=== PATIENT | female | born 1975 | race Caucasian/White ===

== ENCOUNTER 2018-08-24 20:51 | Emergency (ER) | payer BC, OTHER ==
[2018-08-24] MEDS ORDERED: NA CHLORIDE 0.9% 1,000 ML ONE (22:09)
[2018-08-24] MEDS ORDERED: FAMOTIDINE 20 MG/2 ML VIAL IV ONE (22:09)
[2018-08-24 22:18] LABS: Absolute Lymphocytes (CBC) 1.2 K/uL (0.7-4.9); Absolute Monocytes 0.5 K/uL (0.1-1.3); Absolute Neutrophil 6.7 K/uL (1.8-8.0); Basophils % 0.6 % (0-1.3); Eosinophils % 0.7 % (0-4.4); Hematocrit 43.5 % (36.0-45.0); Lymphocytes % 14.2 % (15.3-44.8); MPV 8.6 fL (7.6-11.3); Monocytes % 5.5 % (3.3-12.3); RBC Red Blood Cell Count 4.26 M/uL (3.86-4.86)
[2018-08-24 22:23] LABS: Protime INR 0.92
[2018-08-24 22:36] LABS: ALT/SGPT 46 U/L (12-78); AST/SGOT 53 U/L (15-37); Albumin 3.8 g/dL (3.4-5.0); Alkaline Phosphatase 74 U/L (45-117); BUN Blood Urea Nitrogen 12 mg/dL (7-18); Bicarbonate 27 mmol/L (21-32); Bilirubin Direct 0.2 mg/dL (0-0.2); Bilirubin Total 0.7 mg/dL (0.2-1.0); Glucose Level 111 mg/dL (74-106); Lipase 170 U/L (73-393); Magnesium 2.2 mg/dL (1.8-2.4); NT PRO-BNP 25 pg/mL (<125); Potassium 3.5 mmol/L (3.5-5.1); Protein, Total 8.2 g/dL (6.4-8.2); Sodium Level 138 mmol/L (136-145); Troponin (Emerg Dept Use Only) < 0.02 ng/mL (0.0-0.045)
[2018-08-25 00:06] LABS: Urine Blood NEGATIVE (NEG); Urine Glucose NEGATIVE (NEG); Urine Protein NEGATIVE (NEG); Urine Specific Gravity 1.015 (1.005-1.030)
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
--- NOTE | 2018-08-25 06:46 | EKG ---
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
--- NOTE | 2018-08-25 08:00 | RAD REPORT ---
EXAM DESCRIPTION: RAD - Chest Single View - 08/24/2018 9:55 pm CLINICAL HISTORY: Chest pain;Abdominal distention Chest pain. COMPARISON: No comparisons FINDINGS: Portable technique limits examination quality. The lungs are grossly clear. The heart is normal in size. No displaced fractures. IMPRESSION: No acute intrathoracic process suspected.
--- NOTE | 2018-08-25 08:06 | RAD REPORT ---
EXAM DESCRIPTION: US - Abdomen Exam Limited - 08/24/2018 10:41 pm CLINICAL HISTORY: ABD PAIN COMPARISON: No comparisons FINDINGS: The gallbladder is contracted from recent meal and thus suboptimally assessed. No gallston e is seen. The common bile duct is normal measuring 3 mm. The liver demonstrates no findings of intrahepatic biliary dilatation. IMPRESSION: Contracted gallbladder.
--- NOTE | 2018-08-25 08:07 | RAD REPORT ---
EXAM DESCRIPTION: CT - Chest For Pe Angio - 08/25/2018 4:58 am CLINICAL HISTORY: Chest pain. CHEST PAIN COMPARISON: No comparisons TECHNIQUE: CT angiogram of the pulmonary arteries was performed with MIP. All CT scans are performed using dose optimization technique as appropriate and may include automated exposure control or mA/KV adjustment according to patient size. FINDINGS: No evidence of pulmonary thromboembolism. No acute aortic finding demonstrated. The lungs are clear. No significant pericardial or pleural fluid. No concerning bony finding. IMPRESSION: No evidence of pulmonary thromboembolism. No acute lung findings.
== END 2018-08-25 02:17 | disposition home or self-care (01) ==
LOC: ER 20:51
DX: I10 Essential (primary) hypertension (principal); S20.211A Contusion of right front wall of thorax, initial encounter; X58.XXXA Exposure to other specified factors, initial encounter; R10.821 Right upper quadrant rebound abdominal tenderness
CPT/HCPCS: 36415; 71045; 71275; 76705; 80048; 80076; 81003; 81025; 83690; 83735; 83880; 84484; 85025; 85610; 87086; 87088; 93005; 96361; 96374; 99285; J7030; Q9967

== ENCOUNTER 2020-12-16 13:58 | Emergency (ER) | payer BC ==
--- OUTSIDE RECORDS SUMMARY | 2020-12-16 14:02 | XMS REPORT | Continuity of Care Document ---
:1975 Author Organization [facility] t Address [facility] [address] [place] [id number] Care Team Providers Name Role Phone Unavailable Unavailable Unavailable Problems This patient has no known problems. Allergies, Adverse Reactions, Alerts This patient has no known allergies or adverse reactions. Medications This patient has no known medications. Procedures This patient has no known procedures. Results This patient has no known results.
--- NOTE | 2020-12-16 14:51 | RAD REPORT ---
EXAM DESCRIPTION: RAD - Chest Single View - 12/16/2020 2:44 pm CLINICAL HISTORY: generalized weakness, dizziness Chest pain. COMPARISON: Chest Single View dated 08/24/2018 FINDINGS: Portable technique limits examination quality. The lungs are grossly clear. The heart is normal in size. No displaced fractures. IMPRESSION: No acute intrathoracic process suspected.
[2020-12-16] MEDS ORDERED: MECLIZINE HCL 12.5 MG TAB ONE (14:58)
[2020-12-16] MEDS ORDERED: ONDANSETRON 4 MG/2 ML VIAL ONE (14:58)
[2020-12-16] MEDS ORDERED: NA CHLORIDE 0.9% 1,000 ML ONE (14:58)
--- NOTE | 2020-12-16 15:12 | RAD REPORT ---
EXAM DESCRIPTION: CT - Head Brain Wo Cont - 12/16/2020 3:07 pm CLINICAL HISTORY: DIZZINESS Headache, drowsiness COMPARISON: No comparisons TECHNIQUE: All CT scans are performed using dose optimization technique as appropriate and may inclu de automated exposure control or mA/KV adjustment according to patient size. FINDINGS: No intracranial hemorrhage, hydrocephalus or extra-axial fluid collection.No areas of brai n edema or evidence of midline shift. The paranasal sinuses and mastoids are clear. The calvarium is intact. IMPRESSION: No acute intracranial abnormality.
[2020-12-16 15:16] LABS: Absolute Lymphocytes (CBC) 0.7 K/uL (0.7-4.9); Basophils % 0.4 % (0-1.3); Hematocrit 43.2 % (36.0-45.0); MPV 8.4 fL (7.6-11.3); Protime INR 0.97
[2020-12-16 15:28] LABS: ALT/SGPT 80 U/L (12-78); AST/SGOT 88 U/L (15-37); Albumin 4.5 g/dL (3.4-5.0); Alkaline Phosphatase 92 U/L (45-117); BUN Blood Urea Nitrogen 5 mg/dL (7-18); Bicarbonate 31 mmol/L (21-32); Bilirubin Direct 0.3 mg/dL (0-0.2); Glucose Level 140 mg/dL (74-106); Magnesium 1.7 mg/dL (1.8-2.4); NT PRO-BNP 66 pg/mL (<125); Potassium 3.4 mmol/L (3.5-5.1); Protein, Total 8.4 g/dL (6.4-8.2); Sodium Level 138 mmol/L (136-145); Troponin (Emerg Dept Use Only) < 0.02 ng/mL (0.0-0.045)
[2020-12-16] MEDS ORDERED: PROMETHAZINE INJ 25 MG/ML AMP ONE (16:09)
[2020-12-16] MEDS ORDERED: DIAZEPAM 10 MG/2 ML INJ SYRINGE ONE (16:12)
--- NOTE | 2020-12-16 16:37 | EDPHYS ---
Physician Documentation [facility] Name: Autumn Bhatia Age: 45 yrs Sex: Female : 1975 Arrival Date: 12/16/2020 Time: 13:59 Bed 18 Private MD: ED Physician Jose De Jesus Souza HPI: 12/16 14:39 This 45 yrs old Female presents to ER via EMS with complaints of General pm1 Weakness. 14:39 The patient presents with sense of spinning, vertigo. Onset: The symptoms/episode pm1 began/occurred today. Context: occurred at home, just prior to the episode the patient experienced no apparent symptoms. Modifying factors: the symptoms are aggravated by movement of head, changing position, decreased PO intake for the past few days due to tooth pain and then from multiple upper teeth extraction. Associated signs and symptoms: Pertinent positives: nausea, vomiting, Pertinent negatives: diarrhea, abdominal pain, chest pain, shortness of breath. Severity of symptoms: in the emergency department the symptoms are worse. Patient's baseline: Neuro: alert and fully oriented, Motor: no deficits, Ambulation: walks without assistance, Speech: normal. The patient has not experienced similar symptoms in the past. The patient has been recently seen by a physician: with different complaint(s), multiple upper teeth extraction. 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 - Social history:: Smoking status: Patient denies any tobacco usage or history of. ROS: 14:39 Constitutional: Negative for fever, chills, and weight loss, Eyes: Negative for injury, pm1 pain, redness, and discharge. 14:39 Neck: Negative for injury, pain, and swelling, Cardiovascular: Negative for chest pain, palpitations, and edema, Respiratory: Negative for shortness of breath, cough, wheezing, and pleuritic chest pain. 14:39 Back: Negative for injury and pain, : Negative for injury, bleeding, discharge, and swelling, MS/Extremity: Negative for injury and deformity, Skin: Negative for injury, rash, and discoloration. 14:39 ENT: Positive for dental pain, post teeth extraction, Negative for sore throat, difficulty swallowing, difficulty handling secretions, hoarseness. 14:39 Abdomen/GI: Positive for nausea, vomiting, Negative for abdominal pain, diarrhea, constipation. 14:39 Neuro: Positive for dizziness, Negative for dizziness, numbness, tingling. Exam: 14:39 Constitutional: This is a well developed, well nourished patient who is awake, alert, pm1 and in no acute distress. Head/Face: Normocephalic, atraumatic. 14:39 ENT: Nares patent. No nasal discharge, no septal abnormalities noted. Tympanic membranes are normal and external auditory canals are clear. Oropharynx with no redness, swelling, or masses, exudates, or evidence of obstruction, uvula midline. Mucous membranes moist. 14:39 Skin: Warm, dry with normal turgor. Normal color with no rashes, no lesions, and no evidence of cellulitis. MS/ Extremity: Pulses equal, no cyanosis. Neurovascular intact. Full, normal range of motion. 14:39 Eyes: Periorbital structures: appear normal, Pupils: equal, round, and reactive to light and accomodation, Extraocular movements: intact throughout, Conjunctiva: no acute changes, Nystagmus: horizontal nystagmus present looking to the left side. 14:39 Cardiovascular: Rate: normal, Rhythm: regular, Pulses: no pulse deficits are appreciated, Heart sounds: normal, normal S1and S2. 14:39 Respiratory: Exam negative for acute changes, respiratory distress, shortness of breath, Breath sounds: are clear throughout. 14:39 Abdomen/GI: Inspection: abdomen appears normal, Palpation: abdomen is soft and non-tender, in all quadrants. 14:39 Neuro: Exam negative for acute changes, Orientation: is normal, Mentation: is normal, Cranial nerves: CN II- XII are normal as tested, Motor: moves all fours, strength is normal, Sensation: is normal, no obvious gross deficits. Vital Signs: 14:00 BP 145 / 85; Pulse 82; Resp 16; Temp 98; Pulse Ox 99% ; bp 14:12 BP 146 / 87; Pulse 87; Resp 16; Pulse Ox 97% ; bp 15:30 BP 147 / 97; Pulse 80; Resp 16; Pulse Ox 99% ; bp MDM: 14:09 Patient medically screened. angelina 16:34 ED course: symptoms resolved ed with Valium and phenergan. Will discharge the patient pm[facility] Valium and phenergan. 16:34 Data reviewed: vital signs. Data interpreted: Pulse oximetry: on room air is 99 %. pm1 Interpretation: normal. 16:34 Counseling: I had a detailed discussion with the patient and/or guardian regarding: the pm1 historical points, exam findings, and any diagnostic results supporting the discharge/admit diagnosis, lab results, radiology results, the need for outpatient follow up, a family practitioner, to return to the emergency department if symptoms worsen or persist or if there are any questions or concerns that arise at home. 12/16 14:29 Order name: Basic Metabolic Panel; Complete Time: 15:40 pm1 12/16 14:29 Order name: CBC with Diff pm1 12/16 14:29 Order name: LFT's; Complete Time: 15:40 pm1 12/16 14:29 Order name: Magnesium; Complete Time: 15:40 pm1 12/16 14:29 Order name: NT PRO-BNP; Complete Time: 15:40 pm1 12/16 14:29 Order name: PT-INR; Complete Time: 15:40 pm1 12/16 14:29 Order name: CT Head Brain wo Cont; Complete Time: 15:17 pm1 12/16 14:29 Order name: Troponin (emerg Dept Use Only); Complete Time: 15:40 pm1 12/16 14:29 Order name: XRAY Chest (1 view); Complete Time: 14:56 pm1 12/16 14:29 Order name: EKG; Complete Time: 14:29 pm1 12/16 14:29 Order name: Cardiac monitoring; Complete Time: 14:57 pm12/16 14:29 Order name: EKG - Nurse/Tech; Complete Time: 14:55 pm1 12/16 14:29 Order name: IV Saline Lock; Complete Time: 14:56 pm1 12/16 14:29 Order name: Labs collected and sent; Complete Time: 14:56 pm1 12/16 14:29 Order name: O2 Per Protocol; Complete Time: 14:56 pm12/16 14:29 Order name: O2 Sat Monitoring; Complete Time: 14:56 pm1 Administered Medications: 14:50 Drug: Zofran (Ondansetron) 4 mg Route: IVP; Site: right antecubital; bp 15:35 Follow up: Response: No adverse reaction bp 14:50 Drug: Meclizine 50 mg Route: PO; bp 15:35 Follow up: Response: No adverse reaction bp 15:59 Drug: Phenergan (promethazine) 12.5 mg Route: IVP; Site: right antecubital; bp 16:55 Follow up: Response: No adverse reaction; Marked relief of symptoms bp 15:59 Drug: Valium (diazepam) 5 mg Route: IVP; Site: right antecubital; bp 16:55 Follow up: Response: No adverse reaction; Marked relief of symptoms bp Disposition: 12/16/20 16:37 Discharged to Home. Impression: Benign paroxysmal vertigo. - Condition is Stable. - Discharge Instructions: Benign Positional Vertigo. - Prescriptions for Meclizine 25 mg Oral Tablet - take 1 tablet by ORAL route every 8 hours As needed; 30 tablet. Valium 2 mg Oral Tablet - take 1 tablet by ORAL route every 8 hours As needed; 20 tablet. promethazine 25 mg Oral Tablet - take 1 tablet by ORAL route every 6 hours As needed; 20 tablet. - Medication Reconciliation Form, Thank You Letter, Antibiotic Education, Prescription Opioid Use, Work release form form. - Follow up: Emergency Department; When: As needed; Reason: Worsening of condition. Follow up: Private Physician; When: 2 - 3 days; Reason: Recheck today's complaints, Continuance of care, Re-evaluation by your physician. - Problem is new. - Symptoms have improved. Addendum: 12/18/2020 09:43 Co-signature as Attending Physician, Jose De Jesus Souza MD I agree with the assessment and c montelongo plan of care. Signatures: Dispatcher [employer] EDWV Jose De Jesus Souza MD MD cha Marinas, Patrick, NP CORPORATE GENERAL MANAGER pm1 Albert Wahl, RN RN bp Corrections: (The following items were deleted from the chart) 12/16 16:36 16:34 ED course: improved with valium and phenergan. Will discharge the patient home pm1 with meclizine, valium and phenergan. pm1 17:38 16:37 12/16/2020 16:37 Discharged to Home. Impression: Benign paroxysmal vertigo. bp Condition is Stable. Forms are Medication Reconciliation Form, Thank You Letter, Antibiotic Education, Prescription Opioid Use. Follow up: Emergency Department; When: As needed; Reason: Worsening of condition. Follow up: Private Physician; When: 2 - 3 days; Reason: Recheck today's complaints, Continuance of care, Re-evaluation by your physician. Problem is new. Symptoms have improved. pm1
--- NOTE | 2020-12-16 16:37 | ER ---
Nurse's Notes [facility] Name: Autumn Bhatia Age: 45 yrs Sex: Female : 1975 Arrival Date: 12/16/2020 Time: 13:59 Bed 18 Private MD: Diagnosis: Benign paroxysmal vertigo Presentation: 12/16 14:00 Chief complaint: EMS states: GENERALIZED WEAKNESS AND DIZZINESS. Coronavirus screen: At bp this time, the client does not indicate any symptoms associated with coronavirus-19. Ebola Screen: No symptoms or risks identified at this time. Initial Sepsis Screen: Does the patient meet any 2 criteria? No. Patient's initial sepsis screen is negative. Does the patient have a suspected source of infection? No. Patient's initial sepsis screen is negative. Risk Assessment: Do you want to hurt yourself or someone else? Patient reports no desire to harm self or others. Onset of symptoms was December 16, 2020. Care prior to arrival: Glucose check: 120. 14:00 Method Of Arrival: [facility] bp 14:00 Acuity: SAY 3 bp Triage Assessment: 14:01 General: Appears in no apparent distress. uncomfortable, slender, Behavior is bp cooperative, appropriate for age, anxious. Pain: Denies pain. EENT: No deficits noted. Neuro: Reports dizziness, weakness. Cardiovascular: No deficits noted. Rhythm is sinus rhythm. Respiratory: No deficits noted. GI: Bowel sounds present X 4 quads. : No signs and/or symptoms were reported regarding the genitourinary system. Derm: No deficits noted. Musculoskeletal: No deficits noted. 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 - Social history:: Smoking status: Patient denies any tobacco usage or history of. Screenin:04 Abuse screen: Denies threats or abuse. Denies injuries from another. Nutritional bp screening: No deficits noted. Tuberculosis screening: No symptoms or risk factors identified. Fall Risk None identified. Assessment: 14:04 General: SEE TRIAGE NOTE. bp 15:34 Reassessment: No changes from previously documented assessment. Patient and/or family bp updated on plan of care and expected duration. Pain level reassessed. PT RETURNED FROM CT Patient states symptoms have not improved. Vital Signs: 14:00 BP 145 / 85; Pulse 82; Resp 16; Temp 98; Pulse Ox 99% ; bp 14:12 BP 146 / 87; Pulse 87; Resp 16; Pulse Ox 97% ; bp 15:30 BP 147 / 97; Pulse 80; Resp 16; Pulse Ox 99% ; bp ED Course: 13:59 Patient arrived in ED. cl3 13:59 Albert Wahl, RN is Primary Nurse. bp 14:01 Triage completed. bp 14:01 Arm band placed on. bp 14:04 Patient has correct armband on for positive identification. Bed in low position. Call bp light in reach. Side rails up X2. 14:06 Dat Martínez NP is PHCP. pm1 14:06 Jose De Jesus Souza MD is Attending Physician. pm1 14:44 XRAY Chest (1 view) In Process Unspecified. EDMS 14:50 Inserted saline lock: 20 gauge in right antecubital area, using aseptic technique. bp Blood collected. 14:57 CT Head Brain wo Cont Sent. bp 15:06 CT Head Brain wo Cont In Process Unspecified. EDMS Administered Medications: 14:50 Drug: Zofran (Ondansetron) 4 mg Route: IVP; Site: right antecubital; bp 15:35 Follow up: Response: No adverse reaction bp 14:50 Drug: Meclizine 50 mg Route: PO; bp 15:35 Follow up: Response: No adverse reaction bp 15:59 Drug: Phenergan (promethazine) 12.5 mg Route: IVP; Site: right antecubital; bp 16:55 Follow up: Response: No adverse reaction; Marked relief of symptoms bp 15:59 Drug: Valium (diazepam) 5 mg Route: IVP; Site: right antecubital; bp 16:55 Follow up: Response: No adverse reaction; Marked relief of symptoms bp Outcome: 16:37 Discharge ordered by . pm1 17:38 Patient left the ED. bp Signatures: Dispatcher [employer] EDMS Dat Martínez NP SUPERVISOR MONEY ROOM pm1 Albert Wahl, RN Travis Loera cl3
[2020-12-16 17:47] VITALS: TEMP 98
[2020-12-16 17:50] VITALS: BP 147/97; O2SAT 99
[2020-12-16 19:10] LABS: Platelet Estimate ADEQ; White Blood Cell Scan OK (OK)
[2020-12-16 19:11] LABS: Blood Morphology Comment NOTED (NOT SEEN); Macrocytosis 2+
--- NOTE | 2020-12-17 12:13 | EKG ---
Test Date: 2020-12-16 Test Time: 14:52:07 Time Stamp Assembler: SVEN MEASUREMENT RESULTS: Intervals: Rate: 73 PA: 134 QRSD: 72 QT: 426 QTc: 469 [place]: P: 63 PA: 134 QRS: 68 T: 40 INTERPRETIVE STATEMENTS: Normal sinus rhythm ST abnormality, possible digitalis effect Abnormal ECG Compared to ECG 08/24/2018 22:20:41 ST (T wave) deviation now present Electronically Signed On 12-17-20 12:11:56 CDT by Amador Snyder
== END 2020-12-16 17:38 | disposition home or self-care (01) ==
LOC: ER 13:58
DX: H81.10 Benign paroxysmal vertigo, unspecified ear (principal)
CPT/HCPCS: 93005; 85025; 80048; 36415; 83735; 85610; 80076; 84484; 83880; 70450; 71045; J2550; J3360; J7030; J2405; 96374; 96375; 99284

== ENCOUNTER 2021-11-24 09:46 | Emergency (ER) | payer BC ==
--- OUTSIDE RECORDS SUMMARY | 2021-11-24 09:48 | XMS REPORT | Continuity of Care Document ---
:1975 Author Organization [facility] t Address [address] [place] [address] Care Team Providers Name Role Phone Pcp, Does Not Have A Primary Care Physician Kishore WADE, T Attending Clinician Unavailable Emeli WADE Attending Clinician Unavailable Only, Db Test Attending Clinician Unavailable Romero DANGELO Attending Clinician Pcp, Does Not Have A Attending Clinician HOPE Attending Clinician Unavailable [place] Admitting Clinician Unavailable Payers Payer Name Policy Type Policy Number Effective Date Expiration Date S suzanna [id number] 1959 00:00:00 Problems This patient has no known problems. Allergies, Adverse Reactions, Alerts Allergy Allergy Status Severity Reaction(s) Onset Inactive Treating Comm ents Source Name Type Date Date Clinician Sulfa(Ahumada DA Active Unknown [facility] (LUF/LI V/SA) NO KNOWN Drug Active [facility] ALLERGIE Class [facility] Social History Social Habit Start Date Stop Date Quantity Comments Source Exposure to Not sure [facility] SARS-CoV-2 (event) Medica l Branch Sex Assigned [birth year] [facility] 00:00:00 00:00:00 [facility] Smoking Status Start Date Stop Date Source Unknown if ever smoked [facility] Medications Ordered Filled Start Stop Current Ordering Indication Dosage Frequency Signature Comments Components Source Medication Medication Date Date Medication? Clinician (SIG) Name Name No known No [facility] medications [facility] No known No [facility] medications [facility] No known No [facility] medications [facility] No known No Univers medications ity [facility] No known No Univers medications ity [facility] No known No Univers medications ity [facility] No known No [facility] medications [facility] Vital Signs Vital Name Observation Time Observation Value Comments Source Height 2013-07-04 02:27:00 167.64 CM Weight 2013-07-04 02:27:00 61.23 KG Procedures This patient has no known procedures. Encounters Start End Encounter Admission Attending Care Care Encounter Source Date/Time Date/Time Type Type Clinicians Facility Department ID 2021-04-19 2021-04-19 Letter JOCY Novak [id number] [facility] 00:00:00 00:00:00 (Out) Ct [facility] [id number] it y of [facility] [id number] Shadi as [id number] [address] 2021-04-19 2021-04-19 Letter JOCY Novak [id number] Univers 00:00:00 00:00:00 (Out) Ct [facility] [id number] it y of [facility] [id number] Shadi as [id number] [address] 2021-04-19 2021-04-19 Telephone Opal Sainz [id number] Univers 00:00:00 00:00:00 AMPARO [id number] it y of [facility] [id number] Shadi as [id number] [address] 2021-04-18 2021-04-18 Laboratory Only, Ang Db Test [facility] 1.2.8 [id number] Univers 11:26:02 11:41:02 Only Danyell Jasso [facility] [id number] ity [facility] [id number] Shadi as Manfred?Blea [id number] [address] Medical Office Building 2021-04-18 2021-04-18 Outpatient [facility] [id number] Univers 11:20:00 11:20:[id number] [facility] 2021-04-18 2021-04-18 Outpatient R [facility] [id number] Univers 11:20:00 11:20:[address] [facility] 2021-04-03 2021-04-03 Letter KishoreJOCY francois [id number] Univers 00:00:00 00:00:00 (Out) Ct [facility] [id number] it y of [facility] [id number] Shadi as [id number] [address] 2021-04-03 2021-04-03 Telephone PcpJOCY [id number] Univers 00:00:00 00:00:00 Patient AMPARO [id number] it y of [facility] [id number] [id number] [address] 2021-04-02 2021-04-02 Outpatient R [facility] [id number] Univers 15:10:00 15:10:[id number] [facility] 2021-04-02 2021-04-02 Outpatient R [facility] [id number] Univers 15:10:00 15:10:00 [facility] 2013-07-04 2013-07-04 Emergency 1 AROLDO HOPE EMD [id number] 02:10:00 03:26:00 SHANNON winkler (HILDA/VESNA Segovia/) Results This patient has no known results.
[2021-11-24 10:39] LABS: Urine Blood Negative (Negative); Urine Glucose Negative (Negative); Urine Protein Negative (Negative); Urine Specific Gravity 1.025 (1.005-1.030); Urine pH 5.5 (5.0-7.0)
[2021-11-24 10:58] LABS: Barbiturates NEGATIVE (NEGATIVE); Benzodiazepines NEGATIVE (NEGATIVE); Cocaine NEGATIVE (NEGATIVE); METHAMPHETAM NEGATIVE (NEGATIVE); Methadone NEGATIVE (NEGATIVE); Opiates NEGATIVE (NEGATIVE); Phencyclidine NEGATIVE (NEGATIVE); THC Cannibis NEGATIVE (NEGATIVE)
[2021-11-24 11:07] LABS: Urine Specific Gravity/Preg 1.025 (1.005-1.030)
--- NOTE | 2021-11-24 11:30 | RAD REPORT ---
EXAM DESCRIPTION: CT - C Spine Wo Con - 11/24/2021 11:23 am CLINICAL HISTORY: trauma COMPARISON: <Comparisons> TECHNIQUE: CT Scan was obtained of the cervical spine without contrast. Reformats were provided in t he sagittal and coronal plane. FINDINGS: No acute fracture of the cervical spine. Reversal of the normal cervical lordosis. Mild ce rvical spondylosis with uncovertebral joint hypertrophy at the C5-6 level. No prevertebral edema. No significant focal degenerative changes. No suspicious thyroid nodules or lymphadenopathy. The lung ap ices are clear. IMPRESSION: No acute fracture of the cervical spine .
--- NOTE | 2021-11-24 11:31 | RAD REPORT ---
EXAM DESCRIPTION: CT - Head Brain Wo Cont - 11/24/2021 11:23 am CLINICAL HISTORY: trauma COMPARISON: Head Brain Wo Cont dated 12/16/2020 TECHNIQUE: All CT scans are performed using dose optimization technique as appropriate and may inclu de automated exposure control or mA/KV adjustment according to patient size. FINDINGS: No intracranial hemorrhage, hydrocephalus or extra-axial fluid collection.No areas of brai n edema or evidence of midline shift. Left parietal scalp hematoma. The paranasal sinuses and mastoids are clear. The calvarium is intact. IMPRESSION: No acute intracranial abnormality.
[2021-11-24] MEDS ORDERED: NA CHLORIDE 0.9% 1,000 ML ONE (11:53)
--- NOTE | 2021-11-24 11:57 | RAD REPORT ---
EXAM DESCRIPTION: RAD - Sacrum And Coccyx - 11/24/2021 11:33 am CLINICAL HISTORY: PAIN COMPARISON: <Comparisons> FINDINGS/IMPRESSION: Suspected nondisplaced fracture of S4. No other fractures are identified.
--- NOTE | 2021-11-24 11:58 | RAD REPORT ---
EXAM DESCRIPTION: RAD - Lumbar Spine 3 Views - 11/24/2021 11:33 am CLINICAL HISTORY: PAIN COMPARISON: Lumbar Spine 3 Views dated 11/24/2021No comparisons FINDINGS: No acute fracture. No malalignment. No significant focal degenerative changes. IMPRESSION: No acute osseous abnormality involving the lumbar spine. Suspected nondisplaced S4 fract ure.
[2021-11-24] MEDS ORDERED: ACETAMINOPHEN 325 MG TABLET ONE (12:19)
[2021-11-24] MEDS ORDERED: THIAMINE HCL 100 MG TABLET ONE (12:20)
[2021-11-24 12:39] LABS: Absolute Lymphocytes (CBC) 1.1 K/uL (0.7-4.9); Hematocrit 45.9 % (36.0-45.0); Lymphocytes % 18.1 % (15.3-44.8); MPV 7.5 fL (7.6-11.3); RBC Red Blood Cell Count 4.37 M/uL (3.86-4.86)
[2021-11-24 12:50] LABS: Protime INR 0.99
[2021-11-24 13:06] LABS: ALT/SGPT 27 U/L (12-78); AST/SGOT 51 U/L (15-37); Albumin 3.8 g/dL (3.4-5.0); Alkaline Phosphatase 87 U/L (45-117); BUN Blood Urea Nitrogen 7 mg/dL (7-18); Bicarbonate 24 mmol/L (21-32); Bilirubin Direct 0.2 mg/dL (0-0.2); Bilirubin Total 0.3 mg/dL (0.2-1.0); Glucose Level 84 mg/dL (74-106); Potassium 3.7 mmol/L (3.5-5.1); Sodium Level 141 mmol/L (136-145)
--- NOTE | 2021-11-24 13:09 | ER ---
Nurse's Notes [facility] Name: Autumn Bhatia Age: 46 yrs Sex: Female : 1975 Arrival Date: 11/24/2021 Time: 09:49 Bed 13 Private MD: Diagnosis: Fall on same level, unspecified;Unspecified injury of head, initial encounter-left scalp contusion, hematoma;Alcohol abuse;Low back pain;Fracture of sacrum-non displaced S4 fracture Presentation: 11/24 09:54 Chief complaint: EMS states: ETOH ABUSE AND RECENT FALLS WITH SACRAL PAIN AND LEFT bp TEMPORAL HEMATOMA. Coronavirus screen: At this time, the client does not indicate any symptoms associated with coronavirus-19. Ebola Screen: No symptoms or risks identified at this time. Initial Sepsis Screen: Does the patient meet any 2 criteria? HR > 90 bpm. No. Patient's initial sepsis screen is negative. Does the patient have a suspected source of infection? No. Patient's initial sepsis screen is negative. Risk Assessment: Do you want to hurt yourself or someone else? Patient reports no desire to harm self or others. Onset of symptoms is unknown. Care prior to arrival: Glucose check: 92. 09:54 Method Of Arrival: EMS: [facility] bp 09:54 Acuity: SAY 2 bp Triage Assessment: 09:56 General: Appears in no apparent distress. comfortable, Behavior is cooperative, bp appropriate for age, anxious. Pain: Complains of pain in left temporal area and buttocks. EENT: No deficits noted. Neuro: Level of Consciousness is awake, alert, obeys commands, Oriented to Appropriate for age. Cardiovascular: Rhythm is sinus tachycardia. Respiratory: No deficits noted. GI: No signs and/or symptoms were reported involving the gastrointestinal system. : No signs and/or symptoms were reported regarding the genitourinary system. Derm: No deficits noted. Musculoskeletal: No deficits noted. Injury Description: Bruise sustained to left temporal area. Historical: - Allergies: :56 No Known Allergies; bp - Home Meds: :56 None [Active]; bp - PMHx: 09:56 ovarian vein thrombosis; Depressive disorder; bp - Immunization history:: Adult Immunizations up to date. - Social history:: Smoking status: Patient denies any tobacco usage or history of. - Family history:: not pertinent. Screenin:50 Abuse screen: Denies threats or abuse. Denies injuries from another. Nutritional bp screening: No deficits noted. Tuberculosis screening: No symptoms or risk factors identified. Fall Risk None identified. Assessment: 09:50 General: SEE TRIAGE NOTE. bp 12:00 Reassessment: FAMILY AT B/S. PIV AND LABS OBTAINED. LAB RESULTS PENDING FOR DISPO. bp 13:20 Reassessment: PT D/C HOME AMBULATORY WITH FAMILY, DX WITH ALCOHOL ABUSE. bp Vital Signs: 09:49 BP 130 / 96; Pulse 105; Resp 18; Temp 97.9(O); Pulse Ox 100% on R/A; Weight 58.97 kg mb7 (R); Height 5 ft. 6 in. (167.64 cm) (R); 12:30 BP 124 / 94; Pulse 100; Resp 16; Pulse Ox 99% ; bp 09:49 Body Mass Index 20.98 (58.97 kg, 167.64 cm) mb7 ED Course: 09:49 Patient arrived in ED. em1 09:50 Jose De Jesus Souza MD is Attending Physician. angelina 09:50 Patient has correct armband on for positive identification. Bed in low position. Call mb7 light in reach. Side rails up X 1. Door closed. Noise minimized. 09:53 Albert Wahl, RN is Primary Nurse. bp 09:56 Triage completed. bp 10:19 EKG done, by ED staff, reviewed by Jose De Jesus Souza MD. mb7 11:25 C Spine Wo Con In Process Unspecified. EDMS 11:25 Head Brain Wo Cont In Process Unspecified. EDMS 11:35 Lumbar Spine (3 Views) XRAY In Process Unspecified. EDMS 11:35 Sacrum And Coccyx XRAY In Process Unspecified. EDMS 12:23 Initial lab(s) drawn, by tx, sent to lab. Inserted saline lock: 24 gauge in left wrist, jl7 using aseptic technique. Blood collected. 13:08 Lorenzo Burgos MD is Referral Physician. angelina 13:20 No provider procedures requiring assistance completed. IV discontinued, intact, bp bleeding controlled, No redness/swelling at site. Pressure dressing applied. Administered Medications: 12:28 Drug: NS 0.9% 1000 ml Route: IV; Rate: 1 bolus; Site: right wrist; bp 13:22 Follow up: IV Status: Completed infusion; IV Intake: 1000ml bp 12:28 Drug: Thiamine 100 mg Route: IV; Rate: bolus; Site: right wrist; bp 13:22 Follow up: IV Status: Completed infusion; IV Intake: 100ml bp 12:28 Drug: Tylenol 650 mg Route: PO; bp 13:22 Follow up: Response: No adverse reaction; Pain is decreased bp Intake: 13:22 IV: 100ml; Total: 100ml. bp 13:22 IV: 1000ml; Total: 1100ml. bp Outcome: 13:08 Discharge ordered by . angelina 13:20 Discharged to home ambulatory, with family. bp 13:20 Condition: stable 13:20 Discharge instructions given to patient, Instructed on discharge instructions, follow up and referral plans. medication usage, Demonstrated understanding of instructions, follow-up care, medications, Prescriptions given X 1. 13:22 Patient left the ED. bp Signatures: Dispatcher [employer] EDMS Jose De Jesus Souza MD MD cha Martinez, Eric em1 Rica Ortiz RN RN jl7 Albert Wahl RN RN Veronique Hernandez mb7 Corrections: (The following items were deleted from the chart) 10:31 09:54 Risk Assessment: Do you want to hurt yourself or someone else? Patient reports bp desire/thoughts of hurting themselves or someone else. Provider notified. bp
--- NOTE | 2021-11-24 13:10 | EDPHYS ---
Physician Documentation [facility] Name: Autumn Bhatia Age: 46 yrs Sex: Female : 1975 Arrival Date: 11/24/2021 Time: 09:49 Bed 13 Private MD: ED Physician Jose De Jesus Souza HPI: 11/24 10:54 This 46 yrs old Female presents to ER via EMS with complaints of ETOH ABUSE, angelina Fall Injury. 10:54 Details of fall: The patient fell from an upright position, while walking. Onset: The angelina symptoms/episode began/occurred 1 week(s) ago. Associated injuries: The patient sustained injury to the head, hematoma, decreased range of motion, hematoma. Severity of symptoms: At their worst the symptoms were mild, in the emergency department the symptoms are unchanged. The patient has not experienced similar symptoms in the past. 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 - Social history:: Smoking status: Patient denies any tobacco usage or history of. - Family history:: not pertinent. ROS: 10:54 Constitutional: Negative for fever, chills, and weight loss, Eyes: Negative for injury, angleina pain, redness, and discharge, ENT: Negative for injury, pain, and discharge, Neck: Negative for injury, pain, and swelling, Cardiovascular: Negative for chest pain, palpitations, and edema, Respiratory: Negative for shortness of breath, cough, wheezing, and pleuritic chest pain, Abdomen/GI: Negative for abdominal pain, nausea, vomiting, diarrhea, and constipation, : Negative for injury, bleeding, discharge, and swelling, MS/Extremity: Negative for injury and deformity, Skin: Negative for injury, rash, and discoloration, Psych: Negative for depression, anxiety, suicide ideation, homicidal ideation, and hallucinations, Allergy/Immunology: Negative for hives, rash, and allergies, Endocrine: Negative for neck swelling, polydipsia, polyuria, polyphagia, and marked weight changes, Hematologic/Lymphatic: Negative for swollen nodes, abnormal bleeding, and unusual bruising. 10:54 Back: Positive for decreased range of motion, of the sacrum. 10:54 Neuro: Positive for headache. Exam: 10:54 Constitutional: This is a well developed, well nourished patient who is awake, alert, angelina and in no acute distress. Eyes: Pupils equal round and reactive to light, extra-ocular motions intact. Lids and lashes normal. Conjunctiva and sclera are non-icteric and not injected. Cornea within normal limits. Periorbital areas with no swelling, redness, or edema. ENT: Nares patent. No nasal discharge, no septal abnormalities noted. Tympanic membranes are normal and external auditory canals are clear. Oropharynx with no redness, swelling, or masses, exudates, or evidence of obstruction, uvula midline. Mucous membranes moist. Neck: Trachea midline, no thyromegaly or masses palpated, and no cervical lymphadenopathy. Supple, full range of motion without nuchal rigidity, or vertebral point tenderness. No Meningismus. Chest/axilla: Normal chest wall appearance and motion. Nontender with no deformity. No lesions are appreciated. Cardiovascular: Regular rate and rhythm with a normal S1 and S2. No gallops, murmurs, or rubs. Normal PMI, no JVD. No pulse deficits. Respiratory: Lungs have equal breath sounds bilaterally, clear to auscultation and percussion. No rales, rhonchi or wheezes noted. No increased work of breathing, no retractions or nasal flaring. Abdomen/GI: Soft, non-tender, with normal bowel sounds. No distension or tympany. No guarding or rebound. No evidence of tenderness throughout. Back: No spinal tenderness. No costovertebral tenderness. Full range of motion. Female : Normal external genitalia. Skin: Warm, dry with normal turgor. Normal color with no rashes, no lesions, and no evidence of cellulitis. MS/ Extremity: Pulses equal, no cyanosis. Neurovascular intact. Full, normal range of motion. Neuro: Awake and alert, GCS 15, oriented to person, place, time, and situation. Cranial nerves II-XII grossly intact. Motor strength 5/5 in all extremities. Sensory grossly intact. Cerebellar exam normal. Normal gait. Psych: Awake, alert, with orientation to person, place and time. Behavior, mood, and affect are within normal limits. 10:54 Head/face: Noted is contusion, hematoma, that is mild, of the left frontal area and left temporal area. 10:54 Back: pain, that is mild, of the lumbar area and sacrum. Vital Signs: 09:49 BP 130 / 96; Pulse 105; Resp 18; Temp 97.9(O); Pulse Ox 100% on R/A; Weight 58.97 kg mb7 (R); Height 5 ft. 6 in. (167.64 cm) (R); 12:30 BP 124 / 94; Pulse 100; Resp 16; Pulse Ox 99% ; bp 09:49 Body Mass Index 20.98 (58.97 kg, 167.64 cm) mb7 MDM: 09:50 Patient medically screened. angelina 10:59 Differential diagnosis: abrasion, closed head injury, laceration, multiple trauma, angelina sprain, strain. Data reviewed: vital signs, nurses notes, lab test result(s), EKG, radiologic studies, CT scan, plain films. Data interpreted: radiation monitor: rate is 105 beats/min, rhythm is regular, Pulse oximetry: on room air is 100 %. Test interpretation: by ED physician or midlevel provider: ECG, plain radiologic studies. Counseling: I had a detailed discussion with the patient and/or guardian regarding: the historical points, exam findings, and any diagnostic results supporting the discharge/admit diagnosis, lab results, radiology results, the need for outpatient follow up, for definitive care, a family practitioner, a psychiatrist. 11/24 09:52 Order name: Acetaminophen; Complete Time: 13:08 [facility] 11/24 09:52 Order name: Basic Metabolic Panel; Complete Time: 13:08 angelina 11/24 09:52 Order name: CBC with Diff; Complete Time: 13:08 11/24 09:52 Order name: ETOH Level 11/24 09:52 Order name: Hepatic Function; Complete Time: 13:08 11/24 09:52 Order name: PT-INR; Complete Time: 13:08 angelina 11/24 09:52 Order name: Ptt, Activated; Complete Time: 13:08 11/24 09:52 Order name: Salicylate; Complete Time: 13:08 angelina 11/24 09:52 Order name: Urine Drug Screen; Complete Time: 11:33 angelina 11/24 10:39 Order name: Urine Dipstick-Ancillary; Complete Time: 10:50 EDMS 11/24 10:39 Order name: Urine --Ancillary (enter results); Complete Time: 11:33 em1 11/24 10:47 Order name: Lumbar Spine (3 Views) XRAY; Complete Time: 12:12 [facility] 11/24 10:47 Order name: Sacrum And Coccyx XRAY; Complete Time: 12:12 [facility] 11/24 09:52 Order name: EKG; Complete Time: 09:53 [facility] 11/24 09:52 Order name: EKG - Nurse/Tech; Complete Time: 10:19 [facility] 11/24 09:52 Order name: IV Saline Lock; Complete Time: 11:08 [facility] 11/24 09:52 Order name: Labs collected and sent; Complete Time: 12:28 [facility] 11/24 09:52 Order name: Suicide Precautions; Complete Time: 11:58 [facility] 11/24 09:52 Order name: Suicide Screening ([place]); Complete Time: 11:58 [facility] 11/24 09:52 Order name: Urine Dipstick-Ancillary (obtain specimen); Complete Time: 10:39 [facility] 11/24 09:52 Order name: Urine Test (obtain specimen); Complete Time: 10:39 [facility] 11/24 10:54 Order name: Head Brain Wo Cont; Complete Time: 11:33 EDMS 11/24 11:01 Order name: Ice pack; Complete Time: 11:58 [facility] 11/24 11:24 Order name: C Spine Wo Con; Complete Time: 11:33 EDMS Administered Medications: 12:28 Drug: NS 0.9% 1000 ml Route: IV; Rate: 1 bolus; Site: right wrist; bp 13:22 Follow up: IV Status: Completed infusion; IV Intake: 1000ml bp 12:28 Drug: Thiamine 100 mg Route: IV; Rate: bolus; Site: right wrist; bp 13:22 Follow up: IV Status: Completed infusion; IV Intake: 100ml bp 12:28 Drug: Tylenol 650 mg Route: PO; bp 13:22 Follow up: Response: No adverse reaction; Pain is decreased bp Disposition Summary: 11/24/21 13:08 Discharge Ordered Location: Home angelina Problem: new angelina Symptoms: have improved angelina Condition: Stable angelina Diagnosis - Fall on same level, unspecified angelina - Unspecified injury of head, initial encounter - left scalp contusion, hematoma angelina - Alcohol abuse angelina - Low back pain angelina - Fracture of sacrum - non displaced S4 fracture angelina Followup: angelina - With: Private Physician - When: 2 - 3 days - Reason: Recheck today's complaints, Continuance of care, Re-evaluation by your physician Followup: angelina - With: - When: 2 - 3 days - Reason: Recheck today's complaints, Re-evaluation by your physician Discharge Instructions: - Discharge Summary Sheet angelina - Alcohol Intoxication angelina - Acute Back Pain, Adult angelina - Alcohol Use Disorder angelina - Head Injury, Adult angelina - Musculoskeletal Pain angelina - Alcohol Intoxication, [id number] angelina - Alcohol Abuse and Nutrition angelina - Back Injury Prevention [facility] Forms: - Medication Reconciliation Form [facility] - Thank You Letter angelina - Antibiotic Education angelina - Prescription Opioid Use [facility] Prescriptions: - Tylenol 325 mg Oral Tablet - take 2 tablets by ORAL route every 6 hours as needed; 1 bottle; Refills: 0, angelina Product Selection Permitted Signatures: Dispatcher [employer] EDMS Jose De Jesus Souza MD MD cha Peltier, Brian, RN RN bp Corrections: (The following items were deleted from the chart) 10:54 10:47 Head C Spine MPR Wo Con+CT.RAD.BRZ ordered. EDMS EDMS 11:24 10:57 C Spine W/ Con ordered. EDMS EDMS
[2021-11-24 14:30] VITALS: TEMP 97.9
[2021-11-24 14:32] VITALS: BP 124/94; O2SAT 99
== END 2021-11-24 13:22 | disposition home or self-care (01) ==
LOC: ER 09:46
DX: S32.17XA Type 4 fracture of sacrum, initial encounter for closed fracture (principal); S00.03XA Contusion of scalp, initial encounter; F10.10 Alcohol abuse, uncomplicated; W18.30XA Fall on same level, unspecified, initial encounter
CPT/HCPCS: 96365; 93005; 85025; 80048; 36415; 80320; 80329 ×2; 81025; 85610; 80076; 85730; 81003; 80307; 70450; 72125; 72100; 72220; 99284; J7030

== ENCOUNTER 2021-11-29 20:25 | Inpatient (IN) | payer BC ==
--- OUTSIDE RECORDS SUMMARY | 2021-11-29 20:28 | XMS REPORT | Continuity of Care Document ---
:1975 Author Organization [facility] t Address [address] [place] [address] Care Team Providers Name Role Phone Pcp, Does Not Have A Primary Care Physician Kishore WADE, T Attending Clinician Unavailable Emeli WADE Attending Clinician Unavailable Only, Db Test Attending Clinician Unavailable Romero DANGELO Attending Clinician Pcp, Does Not Have A Attending Clinician HOPE Attending Clinician Unavailable HOPE Admitting Clinician Unavailable Payers Payer Name Policy Type Policy Number Effective Date Expiration Date S suzanna [id number] 00:00:00 Problems This patient has no known problems. Allergies, Adverse Reactions, Alerts Allergy Allergy Status Severity Reaction(s) Onset Inactive Treating Comm ents Source Name Type Date Date Clinician Sulfa(Ahumada DA Active Unknown [facility] (LUF/LI V/SA) NO KNOWN Drug Active [facility] ALLERGIE Class [facility] Social History Social Habit Start Date Stop Date Quantity Comments Source Exposure to Not sure [facility] SARS-CoV-2 (event) Med[facility] Branch Sex Assigned At [birth year] [facility] 00:00:00 00:00:00 [facility] Smoking Status Start Date Stop Date Source Unknown if ever smoked [facility] Medications Ordered Filled Start Stop Current Ordering Indication Dosage Frequency Signature Comments Components Source Medication Medication Date Date Medication? Clinician (SIG) Name Name No known No [facility] medications [facility] No known No [facility] medications [facility] No known No [facility] medications [facility] No known No [facility] medications [facility] No known No [facility] medications [facility] No known No [facility] medications [facility] No known No [facility] medications [facility] Vital Signs Vital Name Observation Time Observation Value Comments Source Height 2013-07-04 02:27:00 167.64 CM Weight 2013-07-04 02:27:00 61.23 KG Procedures This patient has no known procedures. Encounters Start End Encounter Admission Attending Care Care Encounter Source Date/Time Date/Time Type Type Clinicians Facility Department ID 2021-04-19 2021-04-19 Letter JOCY Novak [id number] [facility] 00:00:00 00:00:00 (Out) Ct [facility] [id number] it y of [facility] [id number] Shadi as [id number] [address] 2021-04-19 2021-04-19 Letter JOCY Novak [id number] Univers 00:00:00 00:00:00 (Out) Ct [facility] [id number] it y of [facility] [id number] Shadi as [id number] [address] 2021-04-19 2021-04-19 Telephone Opal Sainz [id number] [facility] 00:00:00 00:00:00 AMPARO [id number] it y of [facility] [id number] Shadi as [id number] [address] 2021-04-18 2021-04-18 Laboratory Only, Ang Db Test [facility] [id number] Univers 11:26:02 11:41:02 Only Danyell Jasso [facility] [id number] ity [facility] [id number] Shadi as Manfred?Blea [id number] [address] [facility] 2021-04-18 2021-04-18 Outpatient [facility] [id number] Univers 11:20:00 11:20:[id number] [facility] 2021-04-18 2021-04-18 Outpatient R [facility] [id number] Univers 11:20:00 11:20:[address] [facility] 2021-04-03 2021-04-03 Letter KishoreJOCY francois [id number] Univers 00:00:00 00:00:00 (Out) Ct [facility] [id number] it y of [facility] [id number] Shadi as [id number] [address] 2021-04-03 2021-04-03 Telephone PcpJOCY [id number] Univers 00:00:00 00:00:00 Patient AMPARO [id number] it y [place] [facility] [id number] [id number] [address] 2021-04-02 2021-04-02 Outpatient R [facility] [id number] Univers 15:10:00 15:10:[id number] [facility] 2021-04-02 2021-04-02 Outpatient R [facility] [id number] Univers 15:10:00 15:10:00 [facility] 2013-07-04 2013-07-04 Emergency 1 AROLDO HOPE EMD [id number] 02:10:00 03:26:00 SHANNON winkler (HILDA/VESNA Segovia/) Results This patient has no known results.
[2021-11-29] MEDS ORDERED: DIAZEPAM 10 MG/2 ML INJ SYRINGE ONE (20:57)
[2021-11-29] MEDS ORDERED: ONDANSETRON 4 MG/2 ML VIAL ONE ×3 (20:57→22:39)
[2021-11-29] MEDS ORDERED: NA CHLORIDE 0.9% 1,000 ML ONE ×2 (20:57→22:26)
[2021-11-29 21:41] LABS: Absolute Lymphocytes (CBC) 0.3 K/uL (0.7-4.9); Hematocrit 44.2 % (36.0-45.0); Lymphocytes % 6.4 % (15.3-44.8); MPV 8.6 fL (7.6-11.3); RBC Red Blood Cell Count 4.27 M/uL (3.86-4.86)
[2021-11-29 21:49] LABS: Protime INR 0.88
[2021-11-29 22:04] LABS: ALT/SGPT 33 U/L (12-78); AST/SGOT 65 U/L (15-37); Albumin 4.4 g/dL (3.4-5.0); Alkaline Phosphatase 116 U/L (45-117); BUN Blood Urea Nitrogen 5 mg/dL (7-18); Bicarbonate 28 mmol/L (21-32); Glucose Level 160 mg/dL (74-106); Lipase 103 U/L (73-393); Potassium 3.8 mmol/L (3.5-5.1); Protein, Total 8.9 g/dL (6.4-8.2); Sodium Level 136 mmol/L (136-145)
[2021-11-29 22:10] LABS: Blood Morphology Comment NOT SEEN (NOT SEEN); Platelet Estimate DECR; White Blood Cell Scan OK (OK)
--- NOTE | 2021-11-29 22:17 | ER ---
Nurse's Notes [facility] Name: Autumn Bhatia Age: 46 yrs Sex: Female : 1975 Arrival Date: 11/29/2021 Time: 20:27 Bed 20 Private MD: Diagnosis: Alcohol dependence with withdrawal, unspecified;Alcohol dependence with withdrawal delirium;Dehydration Presentation: 11/29 21:08 Chief complaint: Patient states: I HAD A DRINK LAST NIGHT AND HAVEN'T DRANK SINCE. I AM kd3 IN WITHDRAWALS. THE ROOM IS SPINNING. AND IM NAUSEOUS. I USUALLY DRINK 4 OF THE MINI LEONILA A DAY. Ebola Screen: No symptoms or risks identified at this time. Initial Sepsis Screen: Does the patient meet any 2 criteria? No. Patient's initial sepsis screen is negative. Does the patient have a suspected source of infection? No. Patient's initial sepsis screen is negative. Risk Assessment: Do you want to hurt yourself or someone else? Patient reports no desire to harm self or others. Onset of symptoms was November 29, 2021. 21:08 Method Of Arrival: EMS kd3 21:08 Acuity: SAY 3 kd3 21:29 Coronavirus screen: Vaccine status: Patient reports receiving the 2nd dose of the covid kd3 vaccine. Triage Assessment: 21:29 General: Appears uncomfortable, Behavior is calm, cooperative. Pain: Denies pain. 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 It has been more than one year since last vaccine. - Social history:: Smoking status: unknown Patient uses alcohol, on a daily basis. - Family history:: not pertinent. - Hospitalizations: : No recent hospitalization is reported. Screenin:28 Abuse screen: Denies threats or abuse. Denies injuries from another. Nutritional kd3 screening: No deficits noted. Tuberculosis screening: No symptoms or risk factors identified. Fall Risk IV access (20 points). Assessment: 21:31 Reassessment: Patient is alert, oriented x 3, equal unlabored respirations, skin kd3 warm/dry/pink. Patient states feeling better. Patient states symptoms have improved. 22:04 Reassessment: trembling returned. General: Appears uncomfortable. kd3 22:47 Reassessment: Patient states feeling better. Patient states symptoms have improved. kd3 Vital Signs: 21:08 BP 145 / 87; Pulse 90; Resp 21; Temp 98.2; Pulse Ox 100% on R/A; Weight 63.5 kg; Height kd3 5 ft. 6 in. (167.64 cm); Pain 0/10; 22:04 BP 139 / 102; Pulse 77; Resp 17; Pulse Ox 100% on R/A; kd3 23:06 BP 142 / 98; Pulse 82; Resp 17; Pulse Ox 98% on R/A; kd3 21:08 Body Mass Index 22.60 (63.50 kg, 167.64 cm) kd3 ED Course: 20:27 Patient arrived in ED. ds4 20:28 Nicholas Teran MD is Attending Physician. rn 20:33 Corie Linton, SHERI is Primary Nurse. kd3 21:12 Triage completed. kd3 21:21 Initial lab(s) drawn, by de, sent to lab. Inserted saline lock: 20 gauge in left tw5 antecubital area, using aseptic technique. Blood collected. Inserted saline lock: ultrasound guided IV. 21:28 Patient has correct armband on for positive identification. Bed in low position. Call kd3 light in reach. Side rails up X2. 21:29 Arm band placed on right wrist. kd3 22:15 Sandip Barnard is Hospitalizing Provider. rn 22:48 COVID-19 SARS RT PCR (Document "Date of Onset" if Symptomatic) Sent. kd3 23:05 No provider procedures requiring assistance completed. Patient admitted, IV remains in kd3 place. 11/30 04:20 Notified the Hospitalist of a critical lab result(s), plat 61. tw5 07:53 Primary Nurse role handed off by Corie Linton, SHERI eb Administered Medications: 11/29 21:30 Drug: Valium (diazepam) 10 mg Route: IVP; Site: left antecubital; kd3 22:49 Follow up: Response: No adverse reaction kd3 21:30 Drug: NS 0.9% 1000 ml Route: IV; Rate: 1000 ml; Site: left antecubital; kd3 22:48 Follow up: Rate change 1000 ml; IV Status: Completed infusion kd3 22:48 Follow up: Response: No adverse reaction kd3 21:30 Drug: Zofran (Ondansetron) 4 mg Route: IVP; Site: left antecubital; kd3 22:48 Follow up: Response: No adverse reaction kd3 22:36 Drug: Ativan (LORazepam) 2 mg Route: IVP; Site: left antecubital; kd3 22:48 Follow up: Response: No adverse reaction kd3 22:36 Drug: Banana Bag - (NS 0.9% 1000 ml, foLIC Acid 1 mg, Thiamine 100 mg, Multivitamin 1 kd3 amp) Route: IV; Rate: calculated rate; Site: left antecubital; 22:39 Drug: Zofran (Ondansetron) 4 mg Route: IVP; Site: left antecubital; kd3 22:48 Follow up: Response: Nausea is decreased kd3 Outcome: 22:16 Decision to Hospitalize by Provider. rn 23:05 Admitted to ER Hold. Please see [facility] for further documentation. kd3 23:05 Condition: stable 23:05 Discharge instructions given to patient, Instructed on the need for admit, Demonstrated understanding of instructions. 11/30 14:09 Patient left the ED. jd3 Signatures: Nicholas Teran MD MD rn Swanson, Donovan ds4 Loy Ricci RN RN jd3 Lenore Sharp Tiffany tw5 Corie Linton RN RN kd3
--- NOTE | 2021-11-29 22:17 | EDPHYS ---
Physician Documentation [facility] Name: Autumn Bhatia Age: 46 yrs Sex: Female : 1975 Arrival Date: 11/29/2021 Time: 20:27 Bed 20 Private MD: ED Physician Nicholas Teran HPI: 11/29 22:11 This 46 yrs old Female presents to ER via EMS with complaints of ETOH withdrawal. rn 22:11 The patient presents with agitation. Onset: The symptoms/episode began/occurred today. rn Possible causes: alcohol, has apparently stopped drinking, for 1 day(s), has a history of previous DT's. Associated signs and symptoms: Pertinent positives: tremor and restlessness. Current symptoms: In the emergency department the patient's symptoms are unchanged from the initial presentation. The patient has experienced similar episodes in the past. The patient has not recently seen a physician. Pt reports heavy drinker, daily, last drink last night, + shaking and restless, + palpitations, no meds given by EMS, reports withdrawal in past, feels terrible, didn't know what to do. . 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 It has been more than one year since last vaccine. - Social history:: Smoking status: unknown Patient uses alcohol, on a daily basis. - Family history:: not pertinent. - Hospitalizations: : No recent hospitalization is reported. ROS: 22:11 Constitutional: Negative for fever, chills, and weight loss, Eyes: Negative for injury, rn pain, redness, and discharge, Neck: Negative for injury, pain, and swelling, Cardiovascular: Negative for chest pain, edema, Respiratory: Negative for shortness of breath, cough, wheezing, and pleuritic chest pain, Abdomen/GI: + nausea, neg for abd pain MS/Extremity: Negative for injury and deformity, Skin: Negative for injury, rash, and discoloration, Neuro: + generalized weakness and tremors Exam: 22:11 Constitutional: This is a well developed, well nourished patient who is awake, alert, rn and in no acute distress. + obvious extremity tremors Head/Face: Normocephalic, atraumatic. Eyes: Periorbital areas with no swelling, redness, or edema. ENT: dry MM with tongue fasciculations Neck: Trachea midline, no thyromegaly or masses palpated, and no cervical lymphadenopathy. Supple, full range of motion without nuchal rigidity, or vertebral point tenderness. No Meningismus. Cardiovascular: tachycardic, regular Respiratory: No increased work of breathing, no retractions or nasal flaring. Abdomen/GI: soft, non-tender Skin: Warm, dry, no petechiae MS/ Extremity: Pulses equal, no cyanosis. Neurovascular intact. Full, normal range of motion. Equal circumference. Neuro: Awake and alert, GCS 15, oriented to person, place, time, and situation. Cranial nerves II-XII grossly intact. Motor strength 5/5 in all extremities. Sensory grossly intact. + tongue fasciculations. Vital Signs: 21:08 BP 145 / 87; Pulse 90; Resp 21; Temp 98.2; Pulse Ox 100% on R/A; Weight 63.5 kg; Height kd3 5 ft. 6 in. (167.64 cm); Pain 0/10; 22:04 BP 139 / 102; Pulse 77; Resp 17; Pulse Ox 100% on R/A; kd3 23:06 BP 142 / 98; Pulse 82; Resp 17; Pulse Ox 98% on R/A; kd3 21:08 Body Mass Index 22.60 (63.50 kg, 167.64 cm) kd3 MDM: 20:28 Patient medically screened. rn 22:11 Differential Diagnosis: electrolyte abnormality, volume depletion, ETOH withdrawal, rn Delirium tremens. . Data reviewed: vital signs, nurses notes, lab test result(s), EKG, and as a result, I will admit patient. Counseling: I had a detailed discussion with the patient and/or guardian regarding: the historical points, exam findings, and any diagnostic results supporting the discharge/admit diagnosis, lab results, radiology results, the need for further work-up and treatment in the hospital. Response to treatment: the patient's symptoms have mildly improved after treatment, and as a result, I will admit patient. Admission orders: after a detailed discussion of the patient's condition and case, the admit orders are written by me. 11/29 20:29 Order name: CBC with Diff; Complete Time: 22:11 rn 11/29 20:29 Order name: Protime (+inr); Complete Time: 22:11 rn 11/29 20:29 Order name: Ptt, Activated; Complete Time: 22:11 rn 11/29 20:29 Order name: CMP; Complete Time: 22:18 rn 11/29 20:29 Order name: Lipase; Complete Time: 22:18 rn 11/29 20:29 Order name: ETOH Level; Complete Time: 22:18 rn 11/29 22:10 Order name: CBC Smear Scan; Complete Time: 22:11 EDMS 11/29 22:22 Order name: COVID-19 SARS RT PCR (Document "Date of Onset" if Symptomatic) ds4 11/30 00:03 Order name: Urine Dipstick-Ancillary EDMS 11/30 01:59 Order name: Urinalysis EDMS 11/30 02:18 Order name: Urine Microscopic Only EDMS 11/30 04:22 Order name: CBC with Automated Diff EDMS 11/30 04:49 Order name: Comprehensive Metabolic Panel EDMS 11/30 04:49 Order name: Phosphorus EDMS 11/29 20:29 Order name: Cardiac monitoring; Complete Time: 20:51 rn 11/29 20:29 Order name: IV Start; Complete Time: 21:31 rn 11/29 20:29 Order name: O2 Sat Monitoring; Complete Time: 21:31 rn 11/29 20:29 Order name: EKG; Complete Time: 20:30 rn 11/29 20:29 Order name: EKG - Nurse/Tech; Complete Time: 20:51 rn 11/30 04:49 Order name: T4 Free EDMS 11/30 04:49 Order name: Magnesium EDMS 11/30 04:49 Order name: Thyroid Stimulating Hormone EDMS 11/30 05:11 Order name: CBC Smear Scan EDMS Administered Medications: 21:30 Drug: Valium (diazepam) 10 mg Route: IVP; Site: left antecubital; kd3 22:49 Follow up: Response: No adverse reaction kd3 21:30 Drug: NS 0.9% 1000 ml Route: IV; Rate: 1000 ml; Site: left antecubital; kd3 22:48 Follow up: Rate change 1000 ml; IV Status: Completed infusion kd3 22:48 Follow up: Response: No adverse reaction kd3 21:30 Drug: Zofran (Ondansetron) 4 mg Route: IVP; Site: left antecubital; kd3 22:48 Follow up: Response: No adverse reaction kd3 22:36 Drug: Ativan (LORazepam) 2 mg Route: IVP; Site: left antecubital; kd3 22:48 Follow up: Response: No adverse reaction kd3 22:36 Drug: Banana Bag - (NS 0.9% 1000 ml, foLIC Acid 1 mg, Thiamine 100 mg, Multivitamin 1 kd3 amp) Route: IV; Rate: calculated rate; Site: left antecubital; 22:39 Drug: Zofran (Ondansetron) 4 mg Route: IVP; Site: left antecubital; kd3 22:48 Follow up: Response: Nausea is decreased kd3 Disposition Summary: 11/29/21 22:16 Hospitalization Ordered Hospitalization Status: Inpatient Admission rn Provider: Sandip Barnard rn Condition: Stable rn Problem: new rn Symptoms: have improved rn Bed/Room Type: Standard rn Location: Telemetry/MedSurg (Inpatient)(11/30/21 13:04) Room Assignment: [facility](11/30/21 13:06) Diagnosis - Alcohol dependence with withdrawal, unspecified rn - Alcohol dependence with withdrawal delirium rn - Dehydration rn Forms: - Medication Reconciliation Form rn - SBAR form rn Signatures: Dispatcher [employer] EDShira Turner RN Petty Hopson RN RN dw Nieto, Roman, MD MD rn Botello, Elizabeth eb Doucette, Kyli, RN RN kd3 Corrections: (The following items were deleted from the chart) 22:19 22:16 Telemetry/MedSurg (Inpatient) antonio kelley 22: 22:16 rn allie 11/30 13:04 11/29 22:19 [facility] ER HOLD mw 11/30 13:04 11/29 22:19 ERHOLD- mw 11/30 13:06 13:[address] [place] [address]
[2021-11-29] MEDS ORDERED: THIAMINE 200 MG/2 ML INJ ONE (22:26)
[2021-11-29] MEDS ORDERED: LORazepam 2 MG/ML VIAL ONE (22:26)
[2021-11-29] MEDS ORDERED: FOLIC ACID 5 MG/ML VIAL ONE (22:27)
[2021-11-29] MEDS ORDERED: MULTIVITAMINS 10 ML VIAL (INJ) IV ONE (22:30)
--- NOTE | 2021-11-29 23:19 | P.HP ---
Certification for Inpatient Patient admitted to: Inpatient With expected LOS: <2 Midnights Patient will require the following post-hospital care: None Practitioner: I am a practitioner with admitting privileges, knowledge of patient current condition, hospital course, and medical plan of care. Services: Services provided to patient in accordance with Admission requirements found in Title 42 Section 412.3 of the Code of Federal Regulations Patient History Date of Service: 11/29/21 Primary Care Provider: Dr. Castrejon Reason for admission: Alcohol Withdrawal History of Present Illness: Patient is a 46-year-old female with alcohol use disorder who presented to the ED via EMS with complaints of alcohol withdrawals. She states that she drank last night and has not drank since. Around 1500 she started feeling dizzy, nauseous, shaking, restless, and palpitations. She states that she has had symptoms like this before. She reports that she typically drinks ~750ml of wine a day. In the ED, labs significant for platelet count of 75. Electrolytes WNL. serum alcohol less than 10. She was given 10 mg of Valium, a banana bag, 2 mg of Ativan, and Zofran. Upon my assessment, patient reports feeling mildly improved. She denies any new or worsening symptoms. Will admit patient for further observation and treatment. Allergies No Known Allergies Allergy (Unverified 02/11/15 15:37) Home medications list reviewed: Yes (NA) - Past Medical/Surgical History Diabetic: No -: Ovarian Vein Thrombosis -: Alcohol Use Disorder -: R ankle and knee Psychosocial/ Personal History: Andrew lives at home with her and son. - Family History Family History: Reviewed- Non-Contributory - Social History Smoking Status: Current some day smoker (vapes) Alcohol use: Yes CD- Drugs: No Caffeine use: Yes Place of Residence: Home Review of Systems General: Chills, Malaise Cardiovascular: Palpitations Gastrointestinal: Nausea, Vomiting Physical Examination - Physical Exam General: Alert, In no apparent distress, Oriented x3 HEENT: Atraumatic, PERRLA, Mucous membr. moist/pink, EOMI, Sclerae nonicteric Neck: Supple, 2+ carotid pulse no bruit, No LAD, Without JVD or thyroid abnormality Respiratory: Clear to auscultation bilaterally, Normal air movement Cardiovascular: Regular rate/rhythm, Normal S1 S2 Gastrointestinal: Normal bowel sounds, No tenderness Musculoskeletal: No tenderness Integumentary: No rashes Neurological: Normal speech, Normal strength at 5/5 x4 extr, Normal tone, Normal affect - Studies Laboratory Data (last 24 hrs) 11/29/21 21:19: Sodium 136, Potassium 3.8, BUN 5 L, Creatinine 0.70, Glucose 160 H, Total Bilirubin 1.0, AST 65 H, ALT 33, Alkaline Phosphatase 116, Lipase 103 11/29/21 21:19: PT 9.7, INR 0.88, APTT 29.0 11/29/21 21:19: WBC 4.8 D, Hgb 15.1 H, Hct 44.2, Plt Count 75 L* D Assessment and Plan - Problems (Diagnosis) (1) Alcohol withdrawal Current Visit: Yes Status: Acute Qualifiers: Complication of substance-induced condition: uncomplicated Qualified Code(s): F10.230 - Alcohol dependence with withdrawal, uncomplicated (2) Thrombocytopenia Current Visit: Yes Status: Acute - Plan -Patient received banana bag in the ER. continue IV fluidsD5 half NS at 100 cc an hour. -Thiamine and folic acid supplementation ordered daily -Monitor electrolytes. Currently WNL -Ativan ordered as needed for withdrawal symptoms. monitor patient closely for symptoms of worsening withdrawal, DT, or seizures -Platelet count was very low at 75. monitor. Patient reports that she is supposed to take Eliquis on a daily basis because she has a history of ovarian vein thrombosis, however she states that she has not -SCDs for DVT prophylaxis Discharge Plan: Home Plan to discharge in: 48 Hours - Advance Directives Does patient have a Living Will: No Does patient have a Durable POA for Healthcare: No - Code Status/Comfort Care Code Status Assessed: Yes (Full) Critical Care: No Time Spent Managing Pts Care (In Minutes): 50
[2021-11-29] MEDS ORDERED: MORPHINE 2 MG/ML SYR IV ONE (23:24)
[2021-11-29] MEDS ORDERED: ONDANSETRON 4 MG/2 ML VIAL IV PRN (23:24)
[2021-11-29] MEDS ORDERED: MORPHINE 2 MG/ML SYR ONE (23:35)
[2021-11-29] MEDS: D5 0.45 NS 1,000 ML IV SCH (23:45)
[2021-11-29] MEDS ORDERED: NA CHLORIDE 0.9% 1,000 ML IV SCH (23:45)
[2021-11-30 00:03] LABS: Urine Blood 3+ (Negative); Urine Glucose Negative (Negative); Urine Protein 3+ (Negative); Urine Specific Gravity 1.015 (1.005-1.030); Urine pH 8.5 (5.0-7.0)
[2021-11-30] MEDS: LORazepam 2 MG/ML VIAL IV PRN ×4 (01:55→22:22)
[2021-11-30] MEDS ORDERED: LORazepam 2 MG/ML VIAL ONE ×2 (01:57→08:43)
[2021-11-30 01:59] LABS: Urine Appearance Cloudy (Clear); Urine Blood 3+ (Negative); Urine Glucose Negative (Negative); Urine Protein 3+ (Negative); Urine Specific Gravity 1.015 (1.005-1.030); Urine pH 8.5 (5.0-7.0)
[2021-11-30 02:09] LABS: Urine Bilirubin NEGATIVE (Negative); Urine Color BROWN (Yellow); Urine Microscopic Reflex ORDER UMIC
[2021-11-30 02:17] LABS: Urine Bacteria >50 /HPF (<20); Urine Mucus 2+ /HPF (NONE SEEN); Urine RBC >50 /HPF (NONE SEEN)
[2021-11-30 04:17] LABS: Absolute Lymphocytes (CBC) 0.6 K/uL (0.7-4.9); Hematocrit 36.1 % (36.0-45.0); Lymphocytes % 17.9 % (15.3-44.8); MPV 8.9 fL (7.6-11.3); RBC Red Blood Cell Count 3.43 M/uL (3.86-4.86)
[2021-11-30 04:37] LABS: ALT/SGPT 26 U/L (12-78); AST/SGOT 43 U/L (15-37); Albumin 3.2 g/dL (3.4-5.0); Alkaline Phosphatase 80 U/L (45-117); BUN Blood Urea Nitrogen 4 mg/dL (7-18); Bicarbonate 27 mmol/L (21-32); Bilirubin Total 0.8 mg/dL (0.2-1.0); Glucose Level 108 mg/dL (74-106); Magnesium 2.3 mg/dL (1.8-2.4); Phosphorus 2.5 mg/dL (2.5-4.9); Potassium 3.5 mmol/L (3.5-5.1); Protein, Total 6.6 g/dL (6.4-8.2); Sodium Level 137 mmol/L (136-145)
[2021-11-30 05:11] LABS: Blood Morphology Comment NOTED (NOT SEEN); Macrocytosis 1+; Platelet Estimate DECR; Stomatocytes 1+; White Blood Cell Scan OK (OK)
[2021-11-30] MEDS: D5 0.45 NS 1,000 ML IV SCH ×3 (05:27→19:45)
[2021-11-30] MEDS ORDERED: D5 0.45 NS 1,000 ML IV ONE (05:30)
[2021-11-30] MEDS ORDERED: FOLIC ACID 1 MG TABLET ONE (08:44)
[2021-11-30] MEDS ORDERED: THIAMINE HCL 100 MG TABLET ONE (08:44)
[2021-11-30] MEDS ORDERED: ONDANSETRON 4 MG/2 ML VIAL ONE (08:44)
[2021-11-30] MEDS: FOLIC ACID 1 MG TABLET PO SCH (08:47)
[2021-11-30] MEDS: THIAMINE HCL 100 MG TABLET PO SCH (08:48)
--- NOTE | 2021-11-30 14:10 | P.PN ---
Subjective Date of Service: 11/30/21 Primary Care Provider: Dr. Castrejon Chief Complaint: Alcohol Withdrawal Patient is awake and alert. She is eating well and has no complaint. Physical Examination - Vital Signs Temperature: 98.4 F Blood Pressure: 121/86 Pulse: 94 Respirations: 15 Pulse Ox (%): 100 - Studies Laboratory Data (last 24 hrs) 11/29/21 21:19: Sodium 136, Potassium 3.8, BUN 5 L, Creatinine 0.70, Glucose 160 H, Total Bilirubin 1.0, AST 65 H, ALT 33, Alkaline Phosphatase 116, Lipase 103 11/29/21 21:19: PT 9.7, INR 0.88, APTT 29.0 11/29/21 21:19: WBC 4.8 D, Hgb 15.1 H, Hct 44.2, Plt Count 75 L* D Assessment And Plan - Plan Physical Exam General: Alert, In no apparent distress, Oriented x3 HEENT: Mucous membr. moist/pink, EOMI, Sclerae nonicteric Neck: Supple, Without JVD or thyroid abnormality Respiratory: Clear to auscultation bilaterally, Normal air movement Cardiovascular: Regular rate/rhythm, Normal S1 S2 Gastrointestinal: Normal bowel sounds, No tenderness Musculoskeletal: No tenderness. Integumentary: No rashes Neurological: Normal speech, Normal strength at 5/5 x4 extr, Normal affect. No tremors. Plan: Nausea and vomiting likely secondary to alcohol withdrawal. Continue CIWA with Ativan taper. Continue IV fluid-banana bag. Thiamine and folic acid. Neurochecks Diet as tolerated. Monitor and correct electrolytes as needed. Patient was asking for any medication she can take to help reduce her craving for alcohol. Will prescribe Acamprosate vs Gabapentin on discharge.
[2021-11-30] MEDS: ACETAMINOPHEN 325 MG TABLET PO PRN ×2 (15:11→22:22)
[2021-12-01 01:38] VITALS: BMI 22.4
[2021-12-01] MEDS: D5 0.45 NS 1,000 ML IV SCH ×2 (01:49→05:45)
[2021-12-01] MEDS ORDERED: TETRAHYDROZOLINE HCL 150 DROPS/15 ML BTL OPTH PRN (02:12)
[2021-12-01 03:26] LABS: Hematocrit 35.6 % (36.0-45.0); Lymphocytes % 31.5 % (15.3-44.8); MPV 9.2 fL (7.6-11.3); RBC Red Blood Cell Count 3.39 M/uL (3.86-4.86)
[2021-12-01 04:06] LABS: ALT/SGPT 33 U/L (12-78); AST/SGOT 91 U/L (15-37); Albumin 3.1 g/dL (3.4-5.0); Alkaline Phosphatase 76 U/L (45-117); BUN Blood Urea Nitrogen < 3 mg/dL (7-18); Bicarbonate 23 mmol/L (21-32); Bilirubin Total 0.7 mg/dL (0.2-1.0); Glucose Level 107 mg/dL (74-106); Phosphorus 1.8 mg/dL (2.5-4.9); Protein, Total 6.2 g/dL (6.4-8.2); Sodium Level 138 mmol/L (136-145)
[2021-12-01 04:08] LABS: Potassium 2.8 mmol/L (3.5-5.1)
[2021-12-01] MEDS: DIPHENHYDRAMINE 25 MG TAB/CAP PO PRN ×2 (04:26→11:56)
[2021-12-01] MEDS: POTASS/SODIUM PHOSPHATE 1 PKT POWD.PACK PO SCH ×3 (05:10→08:00)
[2021-12-01] MEDS: KCL 20 MEQ/100 mL IVPB 20 MEQ/100 ML BAG IV SCH ×3 (05:10→10:20)
[2021-12-01] MEDS: LORazepam 2 MG/ML VIAL IV PRN ×2 (05:19→10:28)
[2021-12-01] MEDS: THIAMINE HCL 100 MG TABLET PO SCH (09:00)
[2021-12-01] MEDS: FOLIC ACID 1 MG TABLET PO SCH (10:20)
[2021-12-01] MEDS: ACETAMINOPHEN 325 MG TABLET PO PRN (10:28)
[2021-12-01] MEDS ORDERED: POTASS/SODIUM PHOSPHATE 1 PKT POWD.PACK PO ONE (11:00)
[2021-12-01 12:11] VITALS: BP 126/92; TEMP 97.8
--- NOTE | 2021-12-01 12:20 | P.DS ---
Admission Date: 11/29/21 Discharge Date: 12/01/21 Primary Care Provider: Dr. Castrejon Disposition: ROUTINE DISCHARGE Discharge Condition: FAIR Reason for Admission: Alcohol Withdrawal - Problems (1) Alcohol withdrawal Current Visit: Yes Status: Acute Qualifiers: Complication of substance-induced condition: uncomplicated Qualified Code(s): F10.230 - Alcohol dependence with withdrawal, uncomplicated (2) Thrombocytopenia Current Visit: Yes Status: Acute Brief History of Present Illness: Patient is a 46-year-old female with alcohol use disorder who presented to the ED via EMS with complaints of alcohol withdrawals. She states that she drank last night and has not drank since. Around 1500 she started feeling dizzy, nauseous, shaking, restless, and palpitations. She states that she has had symptoms like this before. She reports that she typically drinks ~750ml of wine a day. In the ED, labs significant for platelet count of 75. Electrolytes WNL. serum alcohol less than 10. She was given 10 mg of Valium, a banana bag, 2 mg of Ativan, and Zofran. Hospitalized for further management. Hospital Course: Patient admitted to the medical floor and treated for alcohol withdrawal with banana bag and CIWA protocol. Patient was clinically stable, remain awake and alert. She was ambulatory and has not needed much IV Ativan. She is clinically stable for discharge. She is prescribed a tapering dose of Ativan to be taken over 2 days. She was complaining of increased discharge from both eyes. She reports history of allergic conjunctivitis. She is prescribed ketotifen eyedrops and oral cetirizine. She has been informed to continue to abstain from alcohol. Vital Signs/Physical Exam: Temp Pulse Resp BP Pulse Ox 97.8 F 86 18 126/92 H 99 12/01/21 12:00 12/01/21 12:00 12/01/21 12:00 12/01/21 12:00 12/01/21 12:00 General: Alert, In no apparent distress HEENT: Mucous membr. moist/pink Neck: Supple, JVD not distended Respiratory: Normal air movement Cardiovascular: No edema, Regular rate/rhythm, Normal S1 S2 Gastrointestinal: Soft and benign, Non-distended, No tenderness Musculoskeletal: No swelling Integumentary: No rashes Neurological: Normal strength at 5/5 x4 extr, Cranial nerves 3-12 intact Laboratory Data at Discharge: WBC 3.3 K/uL (4.3-10.9) L 12/01/21 02:51 Hgb 12.2 g/dL (12.0-15.0) 12/01/21 02:51 Hct 35.6 % (36.0-45.0) L 12/01/21 02:51 Plt Count 47 K/uL (152-406) L* D 12/01/21 02:51 PT 9.7 SECONDS (9.5-12.5) 11/29/21 21:19 INR 0.88 11/29/21 21:19 APTT 29.0 SECONDS (24.3-36.9) 11/29/21 21:19 Sodium 138 mmol/L (136-145) 12/01/21 02:51 Potassium 2.8 mmol/L (3.5-5.1) L* 12/01/21 02:51 BUN < 3 mg/dL (7-18) L 12/01/21 02:51 Creatinine 0.47 mg/dL (0.55-1.3) L 12/01/21 02:51 Glucose 107 mg/dL (74-106) H 12/01/21 02:51 Phosphorus 1.8 mg/dL (2.5-4.9) L 12/01/21 02:51 Magnesium 2.0 mg/dL (1.8-2.4) 12/01/21 02:51 Total Bilirubin 0.7 mg/dL (0.2-1.0) 12/01/21 02:51 AST 91 U/L (15-37) H 12/01/21 02:51 ALT 33 U/L (12-78) 12/01/21 02:51 Alkaline Phosphatase 76 U/L (45-117) 12/01/21 02:51 Lipase 103 U/L (73-393) 11/29/21 21:19 Home Medications: Cetirizine HCl 10 mg PO DAILY #30 tablet 12/01/21 Ketotifen Fumarate [Zaditor] 5 ml OP BID #1 bottle 12/01/21 LORazepam [Ativan] 1 mg PO BID PRN #3 tab 12/01/21 Thiamine HCl [Vitamin B-1*] 100 mg PO DAILY #30 tablet 12/01/21 New Medications: LORazepam [Ativan] 1 mg PO BID PRN #3 tab PRN Reason: Anxiety Cetirizine HCl 10 mg PO DAILY #30 tablet Thiamine HCl [Vitamin B-1*] 100 mg PO DAILY #30 tablet Ketotifen Fumarate [Zaditor] 5 ml OP BID #1 bottle Diet: Regular Activity: Fall precautions Followup: Dallas Castrejon MD [Primary Care Provider] - 1-2 Weeks Time spent managing pt's care (in minutes): 36
[2021-12-01 12:25] VITALS: O2SAT 99
== END 2021-12-01 14:21 | disposition home or self-care (01) | DRG 897 ==
LOC: ER 20:25 → ERHOLD 23:01 → 2ND 11-30 13:53
PROVIDERS: ADMIT Internal Medicine; ATTEND Internal Medicine
DX: F10.230 Alcohol dependence with withdrawal, uncomplicated (principal); Y90.0 Blood alcohol level of less than 20 mg/100 ml; D69.6 Thrombocytopenia, unspecified; R11.2 Nausea with vomiting, unspecified; F17.290 Nicotine dependence, other tobacco product, uncomplicated; Z86.718 Personal history of other venous thrombosis and embolism; Z20.822 Contact with and (suspected) exposure to COVID-19
CPT/HCPCS: 36415; 80053; 80320; 81003; 81015; 83690; 83735; 84100; 84439; 84443; 85025; 85610; 85730; 87086; 87088; 93005; 96361; 96374; 96375; 99285; J2270; J2405; J3360; J3411; J3480; J7030; J7799; U0003

== ENCOUNTER 2022-07-13 11:01 | Emergency (ER) | payer BC ==
--- OUTSIDE RECORDS SUMMARY | 2022-07-13 11:04 | XMS REPORT | Continuity of Care Document ---
:1975 Author Organization [facility] t Address [address] [place] [address] Care Team Providers Name Role Phone Pcp, Patient Does Not Have A Primary Care Physician +[phone] 00-0000 Ct Novak RN Attending Clinician Unavailable Opal Sainz RN Attending Clinician Unavailable Only, Juan Pablo Db Test Attending Clinician Unavailable Danyell Jasso MD Attending Clinician Pcp, Patient Does Not Have A Attending Clinician [phone]- [phone] SHANNON HOPE Attending Clinician Unavailable SHANNON HOPE Admitting Clinician Unavailable Payers Payer Name Policy Type Policy Number Effective Date Expiration Date Ellen briseno [id number] 1959 00:00:00 Problems This patient has no known problems. Allergies, Adverse Reactions, Alerts Allergy Allergy Status Severity Reaction(s) Onset Inactive Treating Comm ents Source Name Type Date Date Clinician Sulfa(Ahumada DA Active Unknown [facility] (LUF/LI V/SA) NO KNOWN Drug Active [facility] ALLERGIE Class [facility] Social History Social Habit Start Date Stop Date Quantity Comments Source Exposure to Not sure [facility] SARS-CoV-2 (event) Medica l Branch Sex Assigned At [birth year] [facility] 00:00:00 00:00:00 [facility] Smoking Status Start Date Stop Date Source Unknown if ever smoked [facility] Medications Ordered Filled Start Stop Current Ordering Indication Dosage Frequency Signature Comments Components Source Medication Medication Date Date Medication? Clinician (SIG) Name Name No known No [facility] medications [facility] No known No [facility] medications ity [facility] No known No [facility] medications it[facility] of [facility] No known No [facility] medications ity of [facility] No known No Univers medications ity [facility] No known No [facility] medications ity [facility] No known [facility] Vital Signs Vital Name Observation Time Observation Value Comments Source Height 2013-07-04 02:27:00 167.64 CM Weight 2013-07-04 02:27:00 61.23 KG Procedures This patient has no known procedures. Encounters Start End Encounter Admission Attending Care Care Encounter Source Date/Time Date/Time Type Type Clinicians Facility Department ID 2021-04-19 2021-04-19 Letter JOCY Novak [id number] [facility] 00:00:00 00:00:00 (Out) Ct Mistry AMPARO [id number] it y of [facility] [id number] Shadi as [phone] [address] 2021-04-19 2021-04-19 Letter JOCY Novak [id number] Univers 00:00:00 00:00:00 (Out) Ct CHRISTENSEN [id number] it y of [facility]OS[facility] [id number] Shadi as [phone] [address] 2021-04-19 2021-04-19 Telephone Opal Sainz [id number] Univers 00:00:00 00:00:00 AMPARO [id number] it y of [facility] [id number] Shadi as [id number] [address] 2021-04-18 2021-04-18 Laboratory Only, Ang Db Test [facility] 1.2.8 [id number] Univers 11:26:02 11:41:02 Only Danyell Jasso [facility] [id number] ity of [place] [id number] Shadi as Manfred?Blea [id number] [address] Medical Office Building 2021-04-18 2021-04-18 Outpatient R [facility] [id number] Univers 11:20:00 11:20:00 ity [facility] 2021-04-03 2021-04-03 Letter KishoreJOCY francois [id number] Univers 00:00:00 00:00:00 (Out) Ct CHRISTENSEN [id number] it y of [facility] [id number] Shadi as [phone] [address] 2021-04-03 2021-04-03 Telephone PcpJOCY [id number] Univers 00:00:00 00:00:00 Patient AMPARO [id number] it y of Does Not HOSPITAL [id number] [place] [phone] [address] 2021-04-02 2021-04-02 Outpatient R [facility] [id number] Univers 15:10:00 15:10:00 [facility] 2013-07-04 2013-07-04 Emergency 1 AROLDO HOPE EMD [id number] 02:10:00 03:26:00 SHANNON winkler (HILDA/VESNA Segovia/) Results This patient has no known results.
[2022-07-13 11:55] LABS: Urine Blood Negative (Negative); Urine Glucose Negative (Negative); Urine Protein Negative (Negative)
[2022-07-13 13:04] LABS: Absolute Lymphocytes (CBC) 0.5 K/uL (0.7-4.9); Hematocrit 41.3 % (36.0-45.0); Lymphocytes % 16.7 % (15.3-44.8); MCV 109.7 fL (80-100); MPV 8.3 fL (7.6-11.3); RBC Red Blood Cell Count 3.76 M/uL (3.86-4.86)
[2022-07-13] MEDS ORDERED: THIAMINE 200 MG/2 ML INJ ONE (13:06)
[2022-07-13] MEDS ORDERED: LORazepam 2 MG/ML VIAL ONE ×2 (13:06→17:45)
[2022-07-13] MEDS ORDERED: FOLIC ACID 5 MG/ML VIAL ONE (13:07)
[2022-07-13] MEDS ORDERED: MULTIVITAMINS 10 ML VIAL (INJ) IV ONE (13:07)
[2022-07-13] MEDS ORDERED: NA CHLORIDE 0.9% 1,000 ML ONE (13:08)
[2022-07-13 13:26] LABS: Albumin 4.3 g/dL (3.4-5.0); Bilirubin Total 1.5 mg/dL (0.2-1.0); Potassium 3.3 mmol/L (3.5-5.1); Protein, Total 8.4 g/dL (6.4-8.2)
[2022-07-13 13:29] LABS: SARS-COV-2 RT PCR NEGATIVE (NEGATIVE)
[2022-07-13 14:04] LABS: Platelet Estimate DECR; White Blood Cell Scan OK (OK)
[2022-07-13 14:05] LABS: Anisocytosis 1+; Blood Morphology Comment NOTED (NOT SEEN); Poikilocytosis 1+
--- NOTE | 2022-07-13 15:26 | RAD REPORT ---
EXAM DESCRIPTION: CT - Abdomen Pelvis W Contrast - 07/13/2022 2:47 pm CLINICAL HISTORY: Abdominal pain COMPARISON: 2019 TECHNIQUE: Computed axial tomography of the abdomen pelvis was obtained. 100 cc Isovue-300 was admin istered intravenously. Oral contrast was not requested which limits evaluation of bowel and appendix All CT scans are performed using dose optimization technique as appropriate and may include automated exposure control or mA/KV adjustment according to patient size. FINDINGS: Marked fatty infiltration liver The spleen, pancreas, adrenal and kidneys appear unremarkable. There is no evidence of diverticulitis. Apparent wall thickening distal stomach IMPRESSION: Apparent wall thickening distal stomach could indicate gastritis or be secondary to inco mplete distention Marked fatty liver
--- NOTE | 2022-07-13 15:27 | RAD REPORT ---
EXAM DESCRIPTION: US - Abdomen Exam Limited - 07/13/2022 3:11 pm CLINICAL HISTORY: Abdominal pain. COMPARISON: None. FINDINGS: The gallbladder wall is not thickened. A gallstone is not seen. The biliary tree is normal caliber. IMPRESSION: Unremarkable gallbladder ultrasound.
[2022-07-13] MEDS ORDERED: FAMOTIDINE 20 MG/2 ML VIAL IV ONE (15:42)
--- NOTE | 2022-07-13 19:06 | EDPHYS ---
Physician Documentation [facility] Name: Autumn Bhatia Age: 47 yrs Sex: Female : 1975 Arrival Date: 07/13/2022 Time: 11:04 Bed 23 Private MD: MARGUERITE Physician Jose De Jesus Souza HPI: 07/13 11:11 This 47 yrs old Female presents to ER via Ambulatory with complaints of Alcohol jmm Withdrawal, Vomiting, Flank Pain. 11:11 The patient presents with abdominal pain. Onset: The symptoms/episode began/occurred jmm acutely, 1 week(s) ago. Is a 47-year-old female with history of depression and alcohol dependence the presents emerged department after 1 week of binge drinking. Patient's states she is drinking 4 bottles of wine a day. Also states having multiple episodes of vomiting. Patient is looking to detox but states she drank approximately 4 hours prior to arrival.. 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 - Social history:: Smoking status: Reported history of juuling and/or vaping. ROS: 11:11 Constitutional: Negative for fever, chills, and weight loss, Cardiovascular: Negative jmm for chest pain, palpitations, and edema, Respiratory: Negative for shortness of breath, cough, wheezing, and pleuritic chest pain. 11:11 Abdomen/GI: Positive for abdominal pain, nausea and vomiting. 11:11 All other systems are negative. Exam: 11:11 Constitutional: This is a well developed, well nourished patient who is awake, alert, jmm and in no acute distress. Head/Face: atraumatic. Eyes: EOMI, no conjunctival erythema appreciated ENT: Moist Mucus Membranes Neck: Trachea midline, Supple Chest/axilla: Normal chest wall appearance and motion. Cardiovascular: Regular rate and rhythm. No edema appreciated Respiratory: Normal respirations, no respiratory distress appreciated 11:11 Back: Normal ROM Skin: General appearance color normal MS/ Extremity: Moves all extremities, no obvious deformities appreciated, no edema noted to the lower extremities Neuro: Awake and alert Psych: Behavior is normal, Mood is normal, Patient is cooperative and pleasant 11:11 Abdomen/GI: Inspection: abdomen appears normal, Bowel sounds: normal, Palpation: soft, mild abdominal tenderness, in the left upper quadrant and left lower quadrant. Vital Signs: 11:28 BP 129 / 106; Pulse 109; Resp 20; Temp 97.6; Pulse Ox 100% ; Weight 61.23 kg; Height 5 kb3 ft. 5 in. (165.10 cm); Pain 0/10; 12:00 BP 115 / 88; Pulse 93; Resp 16; Pulse Ox 98% on R/A; eh3 13:00 BP 125 / 85; Pulse 108; Resp 18; Pulse Ox 99% on R/A; eh3 14:00 BP 114 / 83; Pulse 107; Resp 18; Pulse Ox 100% on R/A; eh3 15:00 BP 116 / 86; Pulse 97; Resp 18; Pulse Ox 98% on R/A; eh3 16:00 BP 124 / 83; Pulse 102; Resp 18; Pulse Ox 98% on R/A; eh3 17:00 BP 131 / 93; Pulse 99; Resp 18; Pulse Ox 98% on R/A; eh3 18:00 BP 120 / 85; Pulse 94; Resp 18; Pulse Ox 98% on R/A; eh3 19:00 BP 111 / 79; Pulse 115; Resp 18; Pulse Ox 97% on R/A; eh3 11:28 Body Mass Index 22.46 (61.23 kg, 165.10 cm) kb3 MDM: 11:45 Patient medically screened. [facility] 19:03 Data reviewed: vital signs, nurses notes. Counseling: I had a detailed discussion with bessie the patient and/or guardian regarding: the historical points, exam findings, and any diagnostic results supporting the discharge/admit diagnosis, the need for outpatient follow up, to return to the emergency department if symptoms worsen or persist or if there are any questions or concerns that arise at home. 07/13 11:11 Order name: CBC with Diff; Complete Time: 14:05 [facility] 07/13 11:11 Order name: CMP; Complete Time: 13:33 [facility] 07/13 11:11 Order name: Lipase; Complete Time: 13:33 [facility] 07/13 11:11 Order name: ETOH Level; Complete Time: 18:00 [facility] 07/13 11:55 Order name: Urine Dipstick-Ancillary; Complete Time: 11:59 [facility] 07/13 12:00 Order name: COVID-19/FLU A+B; Complete Time: 13:33 [facility] 07/13 11:11 Order name: IV Saline Lock; Complete Time: 12:09 [facility] 07/13 13:12 Order name: CBC Smear Scan; Complete Time: 14:05 [facility] 07/13 13:49 Order name: CT Abd/Pelvis - IV Contrast Only; Complete Time: 15:28 [facility] 07/13 13:49 Order name: US Abdomen Limited; Complete Time: 15:28 [facility] 07/13 11:11 Order name: Labs collected and sent; Complete Time: 13:49 [facility] 07/13 11:11 Order name: Urine Dipstick-Ancillary (obtain specimen); Complete Time: 12:09 [facility] 07/13 11:11 Order name: Urine Test (obtain specimen); Complete Time: 12:09 [facility] 07/13 15:47 Order name: Misc. Order: bolus cody banana bag; Complete Time: 16:20 jm Administered Medications: 13:00 Drug: Ativan (LORazepam) 1 mg Route: IVP; Site: right antecubital; eh3 13:53 Follow up: Response: Anxiety decreased eh3 13:00 Drug: Banana Bag - (NS 0.9% 1000 ml, foLIC Acid 1 mg, Thiamine 100 mg, Multivitamin 1 eh3 amp) Route: IV; Rate: calculated rate; Site: right antecubital; 17:41 Follow up: IV Status: Completed infusion; IV Intake: 1000ml eh3 15:45 Drug: Pepcid (famotidine) 20 mg Route: IVP; Site: right antecubital; eh3 16:26 Follow up: Response: No adverse reaction eh3 17:48 Drug: Ativan (LORazepam) 1 mg Route: IVP; Site: right antecubital; eh3 19:13 Follow up: Response: No adverse reaction eh3 Disposition: 07/14 08:11 Co-signature as Attending Physician, Jose De Jesus Souza MD I agree with the assessment and angelina plan of care. Disposition Summary: 07/13/22 19:05 Discharge Ordered Location: Home [facility] Condition: Stable [facility] Diagnosis - Alcohol abuse [facility] - Acute gastritis [facility] Followup: [facility] - With: John Cooley MD - When: 2 - 3 days - Reason: Recheck today's complaints, Continuance of care, Re-evaluation by your physician Followup: [facility] - With: Lex Kemp MD - When: 2 - 3 days - Reason: Recheck today's complaints, Continuance of care, Re-evaluation by your physician Discharge Instructions: - Discharge Summary Sheet [facility] - Alcohol Abuse and Nutrition [facility] Forms: - Medication Reconciliation Form [facility] - Thank You Letter [facility] - Antibiotic Education [facility] - Prescription Opioid Use [facility] Prescriptions: - ondansetron 4 mg Oral tablet,disintegrating - take 1 tablet by ORAL route every 4-6 hours As needed; 20 tablet; Refills: 0, [facility] Product Selection Permitted - Pepcid 20 mg Oral Tablet - take 1 tablet by ORAL route every 12 hours for 10 days; 20 tablet; Refills: 0, [facility] Product Selection Permitted - chlordiazepoxide HCl 25 mg Oral capsule - take 1 capsule by ORAL route as directed Please take 50 mg q 6 hours on day 1, [facility] take 25 mg q 6 hours on day 2, take 25 mg q 12 hours on day 3, take 25 mg at night on day 4; 15 capsule; Refills: 0, Product Selection Permitted Signatures: Dispatcher [employer] Jose De Jesus Valencia MD MD cha Mickail, Joel, PA PA [facility] Caitlyn Villaseñor RN RN eh3 Anny Townsend RN RN kb3 Corrections: (The following items were deleted from the chart) 07/13 11:36 11:33 PSHx: None; kb3 kb3
--- NOTE | 2022-07-13 19:06 | ER ---
Nurse's Notes [facility] Name: Autumn Bhatia Age: 47 yrs Sex: Female : 1975 Arrival Date: 07/13/2022 Time: 11:04 Bed 23 Private MD: Diagnosis: Alcohol abuse;Acute gastritis Presentation: 07/13 11:28 Chief complaint: Patient states: Pt reports binge drinking x 1 week, pt with history of kb3 alcoholism, States last drink was this morning nd she is currently intoxicated. Pt reports she has left-sided abdominal pain x1 week, vomiting since this morning and has experienced lack of appetite x5 weeks. Coronavirus screen: Vaccine status: Client denies travel out of the [place] in the last 14 days. Ebola Screen: Patient negative for fever greater than or equal to 101.5 degrees Fahrenheit, and additional compatible Ebola Virus Disease symptoms Patient denies exposure to infectious person. Patient denies travel to an Ebola-affected area in the 21 days before illness onset. Initial Sepsis Screen: Does the patient meet any 2 criteria? No. Patient's initial sepsis screen is negative. Does the patient have a suspected source of infection? No. Patient's initial sepsis screen is negative. Risk Assessment: Do you want to hurt yourself or someone else? Patient reports no desire to harm self or others. Onset of symptoms was July 13, 2022 at 07:00. 11:28 Method Of Arrival: Ambulatory kb3 11:28 Acuity: SAY 3 kb3 Triage Assessment: 11:33 General: Appears distressed, uncomfortable, Behavior is cooperative, anxious, crying. kb3 Pain: Denies pain. GI: Reports nausea, vomiting. 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 - Social history:: Smoking status: Reported history of juuling and/or vaping. Screenin:00 Abuse screen: Denies threats or abuse. Denies injuries from another. Nutritional eh3 screening: No deficits noted. Tuberculosis screening: No symptoms or risk factors identified. Fall Risk None identified. Assessment: 12:00 General: Appears in no apparent distress. uncomfortable, Behavior is cooperative, eh3 appropriate for age, anxious. Pain: Complains of pain in left upper quadrant and left lower quadrant Pain does not radiate. Pain currently is 4 out of 10 on a pain scale. Neuro: Level of Consciousness is awake, alert, obeys commands, Oriented to person, place, time, situation. Cardiovascular: Capillary refill < 3 seconds Patient's skin is warm and dry. Respiratory: Airway is patent Respiratory effort is even, unlabored, Respiratory pattern is regular, symmetrical. GI: Abdomen is flat, non-distended, Reports lower abdominal pain, anorexia, nausea, vomiting. : No signs and/or symptoms were reported regarding the genitourinary system. EENT: Reports pain in throat. Derm: No signs and/or symptoms reported regarding the dermatologic system. Musculoskeletal: No signs and/or symptoms reported regarding the musculoskeletal system. Circulation, motion, and sensation intact. Range of motion: intact in all extremities. 13:00 Reassessment: Patient and/or family updated on plan of care and expected duration. Pain eh3 level reassessed. Patient is alert, oriented x 3, equal unlabored respirations, skin warm/dry/pink. 14:00 Reassessment: Patient and/or family updated on plan of care and expected duration. Pain eh3 level reassessed. Patient is alert, oriented x 3, equal unlabored respirations, skin warm/dry/pink. 15:00 Reassessment: Patient and/or family updated on plan of care and expected duration. Pain eh3 level reassessed. Patient is alert, oriented x 3, equal unlabored respirations, skin warm/dry/pink. 16:00 Reassessment: Patient and/or family updated on plan of care and expected duration. Pain eh3 level reassessed. Patient is alert, oriented x 3, equal unlabored respirations, skin warm/dry/pink. 17:00 Reassessment: Patient and/or family updated on plan of care and expected duration. Pain eh3 level reassessed. Patient is alert, oriented x 3, equal unlabored respirations, skin warm/dry/pink. Pt states, "I just started shaking really bad," provider notified. 18:00 Reassessment: Patient and/or family updated on plan of care and expected duration. Pain eh3 level reassessed. Patient is alert, oriented x 3, equal unlabored respirations, skin warm/dry/pink. 19:00 Reassessment: Patient and/or family updated on plan of care and expected duration. Pain eh3 level reassessed. Patient is alert, oriented x 3, equal unlabored respirations, skin warm/dry/pink. Vital Signs: 11:28 BP 129 / 106; Pulse 109; Resp 20; Temp 97.6; Pulse Ox 100% ; Weight 61.23 kg; Height 5 kb3 ft. 5 in. (165.10 cm); Pain 0/10; 12:00 BP 115 / 88; Pulse 93; Resp 16; Pulse Ox 98% on R/A; eh3 13:00 BP 125 / 85; Pulse 108; Resp 18; Pulse Ox 99% on R/A; eh3 14:00 BP 114 / 83; Pulse 107; Resp 18; Pulse Ox 100% on R/A; eh3 15:00 BP 116 / 86; Pulse 97; Resp 18; Pulse Ox 98% on R/A; eh3 16:00 BP 124 / 83; Pulse 102; Resp 18; Pulse Ox 98% on R/A; eh3 17:00 BP 131 / 93; Pulse 99; Resp 18; Pulse Ox 98% on R/A; eh3 18:00 BP 120 / 85; Pulse 94; Resp 18; Pulse Ox 98% on R/A; eh3 19:00 BP 111 / 79; Pulse 115; Resp 18; Pulse Ox 97% on R/A; eh3 11:28 Body Mass Index 22.46 (61.23 kg, 165.10 cm) kb3 ED Course: 11:04 Patient arrived in ED. rg4 11:07 Kenny Neumann PA is PHCP. jmm 11:07 Jose De Jesus Souza MD is Attending Physician. jmm 11:33 Triage completed. kb3 11:33 Arm band placed on right wrist. kb3 12:03 Caitlyn Villaseñor, RN is Primary Nurse. eh3 12:06 Patient has correct armband on for positive identification. Placed in gown. Bed in low mm9 position. Call light in reach. Side rails up X 1. Warm blanket given. Pulse ox on. NIBP on. 12:06 Missed attempt(s): 20 gauge in right antecubital area. upper arm. mm9 12:13 Urine collected: clean catch specimen, calin colored, Test negative. rs5 12:15 Missed attempt(s): 22 gauge in left antecubital area. Bleeding controlled, band aid eh3 applied, catheter tip intact. 12:55 Missed attempt(s): 22 gauge in right antecubital area. Bleeding controlled, band aid jd3 applied, catheter tip intact. 12:57 Accessed peripheral vein via ultrasound, utilizing dynamic ultrasound technique using jd3 20G Nexia IV catheter ,sterile technique, per hospital protocol. Clean \\T\\ dry. Dressing intact. Good blood return. Flushes easily. 20 G right AC. 14:49 CT Abd/Pelvis - IV Contrast Only In Process Unspecified. EDMS 15:12 US Abdomen Limited In Process Unspecified. EDMS 16:27 Diet: Patient given water. Tolerated well. eh3 19:04 John Cooley MD is Referral Physician. [facility] 19:04 Lex Kemp MD is Referral Physician. [facility] 19:12 No provider procedures requiring assistance completed. IV discontinued, intact, eh3 bleeding controlled, No redness/swelling at site. Pressure dressing applied. Administered Medications: 13:00 Drug: Ativan (LORazepam) 1 mg Route: IVP; Site: right antecubital; eh3 13:53 Follow up: Response: Anxiety decreased eh3 13:00 Drug: Banana Bag - (NS 0.9% 1000 ml, foLIC Acid 1 mg, Thiamine 100 mg, Multivitamin 1 eh3 amp) Route: IV; Rate: calculated rate; Site: right antecubital; 17:41 Follow up: IV Status: Completed infusion; IV Intake: 1000ml eh3 15:45 Drug: Pepcid (famotidine) 20 mg Route: IVP; Site: right antecubital; eh3 16:26 Follow up: Response: No adverse reaction eh3 17:48 Drug: Ativan (LORazepam) 1 mg Route: IVP; Site: right antecubital; eh3 19:13 Follow up: Response: No adverse reaction eh3 Medication: 19:12 VIS not applicable for this client. eh3 Intake: 17:41 IV: 1000ml; Total: 1000ml. eh3 Outcome: 19:05 Discharge ordered by . bessie 19:12 Discharged to home ambulatory. 3 19:12 Condition: stable 19:12 Discharge instructions given to patient, Instructed on discharge instructions, follow up and referral plans. no drinking with medication, medication usage, Demonstrated understanding of instructions, follow-up care, medications, Prescriptions given X 3. 19:13 Patient left the ED. 3 Signatures: Dispatcher [employer] EDMS Kenny Neumann PA PA jmm Garcia, Rubi rg4 Loy Ricci RN RN jCaitlyn Henning RN RN eh3 Anny Townsend RN RN kilo3 Kyra Mcclellan mm9 Cuong Person rs5 Corrections: (The following items were deleted from the chart) 11:36 11:33 PSHx: None; kb3 kb3
[2022-07-13 19:35] VITALS: TEMP 97.6
[2022-07-13 19:44] VITALS: BP 111/79; O2SAT 97
== END 2022-07-13 19:13 | disposition home or self-care (01) ==
LOC: ER 11:01
DX: F10.20 Alcohol dependence, uncomplicated (principal); K29.00 Acute gastritis without bleeding; Z20.822 Contact with and (suspected) exposure to COVID-19
CPT/HCPCS: 96365; 85025; 36415; 80320; 81003; 83690; 80053; 0240U; 74177; 76705; 96375; 99284; 96366; Q9967; J3411; J7030

== ENCOUNTER → 2023-10-15 | Emergency (ER) | payer BC ==
[~2023-10-15] MED LIST: HYDROCODONE/APAP 10/325 TAB ONE; KETOROLAC 30 MG/ML INJ ONE
--- OUTSIDE RECORDS SUMMARY | 2023-10-15 18:33 | XMS REPORT | Continuity of Care Document ---
Author Name Unknown Address [address] [facility]. [address] [place] [address] [facility] thconnect Address [address] [facility] [address] [place] [address] Care Team Providers Care Panel Maker Name Role Phone Pcp, Patient Does Not Have A Primary Care Physic car [email or web address] Attending Clinician Unavaila JEREMY Hoover Attending Clinician Unavailab radha Novak RN, Ct Mistry Attending Clinician Unavailab radha Sainz RN, Opal Attending Clinician Unavailable Only, Ang Db Test Attending Clinician Unavailaliyah Jasso MD, Danyell Attending Clinician [phone] Pcp, Patient Does Not Have A Attending Clinician SHANNON HOPE Attending Clinician Unavailable [id number] Admitting Clinician UnavailSHANNON Jensen Admitting Clinician Unavailable Payers Payer Name Policy Type Policy Number Effective Date Expirati on Date Source [id number] 1959 00:00:00 Allergies, Adverse Reactions, Alerts Allergy Name Allergy Type Status Severity Reaction(s) Onset Date Inactive Date Treating Clinician Comments Source NO KNOWN ALLERGIE S Drug Class Active [facility] Sulfa(Ahumada lfonamid e Antibiot ics) DA Active Unknown [facility] Memoria l (LUF/LI V/SA) Social History Social Habit Start Date Stop Date Quantity Comments Source Exposure to SARS-CoV-2 (event) Not sure [facility] Sex Assigned At 1975 00:00:00 1975 00:00:00 [facility] Smoking Status Start Date Stop Date Source Unknown if ever smoked [facility] Medications Ordered Medication Name Filled Medication Name Start Date Stop Date Current Medication? Ordering Clinician Indication Dosage Frequency Signature (SIG) Comments Components Source No known medications No Un jose luis ity [facility] No known medications [facility] No Un jose luis ity [facility] No known medications No Un jose luis ity [facility] No known medications No Un jose luis ity [facility] No known medications No Un jose luis ity [facility] No known medications [facility] Vital Signs Vital Name Observation Time Observation Value Comments S ource Weight 2013-07-04 02:27:00 61.23 KG Height 2013-07-04 02:27:00 167.64 CM Encounters Start Date/Time End Date/Time Encounter Type Admission Type Attending [facility] Care Facility Care Department Encounter ID Source 2023-06-11 00:00:00 2023-06-11 00:00:00 Outpatient [email or web address] [facility] [id number] [facility] 2023-01-17 10:04:00 2023-01-17 13:56:00 Emergency ER JEREMY PETERSON [facility] [id number] [facility] 2021-04-19 00:00:00 2021-04-19 00:00:00 [facility] [id number] 350.1.13.10 [id number] [id number] [facility] 2021-04-19 00:00:00 2021-04-19 00:00:00 Letter (Out) [facility] [id number] [facility] 2021-04-19 00:00:00 2021-04-19 00:00:00 Telephone Opal Sainz [facility] [id number] [id number] [facility] 2021-04-18 11:26:02 2021-04-18 11:41:02 Laboratory Only Only, [facility] [id number] [facility] 2021-04-18 11:20:00 2021-04-18 11:20:00 Outpatient R [facility] [id number] [facility] 2021-04-03 00:00:00 2021-04-03 00:00:00 Letter (Out) Ct Novak [facility] [id number] [facility] 2021-04-03 00:00:00 2021-04-03 00:00:00 Telephone Pcp, Patient Does Not Have A [facility] [id number] [id number] [facility] 2021-04-02 15:10:00 2021-04-02 15:10:00 Outpatient R [facility] [id number] [facility] 2013-07-04 02:10:00 2013-07-04 03:26:00 Emergency 1 SHANNON HOPE EMD [id number] BREANNA Maza (HILDA/VESNA Segovia/)
--- NOTE | 2023-10-15 19:28 | RAD REPORT ---
EXAM DESCRIPTION: RAD - Shoulder Left 2 View - 10/15/2023 7:12 pm CLINICAL HISTORY: Left shoulder pain status post fall FINDINGS: Comminuted avulsion fracture lateral aspect humeral head. Oblique fracture extends inferio rly involving humeral metaphysis. No dislocation
--- NOTE | 2023-10-15 19:28 | ER ---
Nurse's Notes [facility] Name: Autumn Bhatia Age: 48 yrs Sex: Female : 1975 Arrival Date: 10/15/2023 Time: 18:26 Bed 16 Private MD: Diagnosis: Left proximal humerus fracture Presentation: 10/14 18:25 Chief complaint: EMS states: FALL YESTERDAY AFTENOON. LEFT SHOULDER PAIN WITH PAIN AND db SWELLING INCREASED PAIN WITH MORVEMENT. BRUISE TO RIGHT LOWER LEG FROM FALL LAST WEEK, PT STATES TOOK TYLENOL TODAY. Coronavirus screen: Vaccine status: Patient reports receiving the 2nd dose of the covid vaccine. Client denies travel out of the [place] in the last 14 days. At this time, the client does not indicate any symptoms associated with coronavirus-19. Ebola Screen: Patient negative for fever greater than or equal to 101.5 degrees Fahrenheit, and additional compatible Ebola Virus Disease symptoms Patient denies exposure to infectious person. Patient denies travel to an Ebola-affected area in the 21 days before illness onset. No symptoms or risks identified at this time. Initial Sepsis Screen: Does the patient meet any 2 criteria? HR > 90 bpm. Does the patient have a suspected source of infection? No. Patient's initial sepsis screen is negative. Risk Assessment: Do you want to hurt yourself or someone else? Patient reports no desire to harm self or others. Onset of symptoms was October 14, 2023. 18:25 Method Of Arrival: EMS: [facility] db 18:25 Acuity: SAY 3 db Triage Assessment: 18:35 General: Appears in no apparent distress. uncomfortable, Behavior is calm, cooperative. db Pain: Complains of pain in left arm. Neuro: Level of Consciousness is awake, alert, obeys commands, Oriented to person, place, time, situation. Musculoskeletal: Circulation, motion, and sensation intact. Capillary refill < 3 seconds, Range of motion: limited in left shoulder and left elbow Swelling present in left arm. Injury Description: Bruise sustained to left arm. Historical: - Allergies: 18:35 No Known Allergies; db - PMHx: 18:35 Alcohol dependence; depressive disorder; ovarian vein thrombosis; db - PSHx: 18:35 ankle SX; knee sx; db - Immunization history:: Adult Immunizations unknown. - Social history:: Smoking status: Reported history of juuling and/or vaping. Screenin:36 [facility] ED Fall Risk Assessment (Adult) History of falling in the last 3 months, db including since admission Yes- fall prone (multiple falls) (3 pts) Confusion or Disorientation No (0 pts) Intoxicated or Sedated No (0 pts) Impaired Gait No (0 pts) Mobility Assist Device Used No (0 pt) Altered Elimination No (0 pt) Score/Fall Risk Level 3 or more points = High Risk Oriented to surroundings, Maintained a safe environment, Educated pt \T\ family on fall prevention, incl call for assistance when getting out of bed. Abuse screen: Denies threats or abuse. Denies injuries from another. Nutritional screening: No deficits noted. Tuberculosis screening: No symptoms or risk factors identified. Assessment: 18:36 Reassessment: SEE TRIAGE FOR INITIAL ASSESSMENT. db 19:00 General: Appears in no apparent distress. uncomfortable, well groomed, well developed, pf1 Behavior is calm, cooperative, appropriate for age, quiet. 19:00 Pain: Complains of pain in left elbow and left shoulder and left arm Pain currently is pf1 10 out of 10 on a pain scale. Neuro: No deficits noted. Level of Consciousness is awake, alert, obeys commands, Oriented to person, place, time, situation. Cardiovascular: No deficits noted. Capillary refill < 3 seconds Patient's skin is warm and dry. Respiratory: No deficits noted. Airway is patent Respiratory effort is even, unlabored, Respiratory pattern is regular, symmetrical, Breath sounds are clear bilaterally. GI: No deficits noted. No signs and/or symptoms were reported involving the gastrointestinal system. : No deficits noted. No signs and/or symptoms were reported regarding the genitourinary system. EENT: No deficits noted. No signs and/or symptoms were reported regarding the EENT system. Derm: No deficits noted. No signs and/or symptoms reported regarding the dermatologic system. Musculoskeletal: Circulation, motion, and sensation intact. Capillary refill < 3 seconds, Range of motion: limited in left shoulder and left arm and left elbow Swelling present in left arm Reports pain in left shoulder and left arm and left elbow. 20:00 Reassessment: Patient appears in no apparent distress at this time. Patient and/or pf1 family updated on plan of care and expected duration. Pain level reassessed. Patient is alert, oriented x 3, equal unlabored respirations, skin warm/dry/pink. Vital Signs: 18:25 BP 171 / 116; Pulse 112; Resp 20; Temp 99; Pulse Ox 100% ; Weight 65.77 kg; Height 5 db ft. 6 in. ; Pain 10/10; 19:45 BP 160 / 92; Pulse 95; Resp 16; Temp 98.8; Pulse Ox 100% on R/A; Pain 7/10; pf1 18:25 Body Mass Index 23.40 (65.77 kg, 167.64 cm) db 18:25 Pain Scale: Adult db 19:45 Pain Scale: Adult pf1 ED Course: 18:32 Patient arrived in ED. db 18:33 Socorro Dee [facility]NP-C [facility] kb 18:33 Nicholas Teran MD is Attending Physician. kb 18:35 Triage completed. db 18:35 Arm band placed on Patient placed in an exam room. db 18:36 Patient has correct armband on for positive identification. Bed in low position. Call db light in reach. Side rails up X 1. Pulse ox on. NIBP on. 19:14 Shoulder Left (2 View) XRAY In Process Unspecified. EDMS 19:50 Sling \T\ swathe to left arm. pf1 20:00 Provided Education on: mediation and ortho follow up. pf1 20:00 No provider procedures requiring assistance completed. Patient did not have IV access pf1 during this emergency room visit. Administered Medications: 18:45 Drug: Ketorolac IM 30 mg IM once Route: IM; Site: right deltoid; pf1 20:00 Follow up: Response: No adverse reaction; Marked relief of symptoms; Pain is decreased pf1 20:00 Drug: [place] PO 10 mg-325 mg 1 tabs PO once Route: PO; pf1 20:00 Follow up: Response: No adverse reaction; Marked relief of symptoms; Pain is decreased; pf1 RASS: Alert and Calm (0) 20:01 Follow up: Response: No adverse reaction; Marked relief of symptoms pf1 Medication: 20:00 VIS not applicable for this client. pf1 Outcome: 19:27 Discharge ordered by . kb 20:00 Discharged to home ambulatory, pf1 20:00 Condition: stable 20:00 Discharge instructions given to patient, Instructed on discharge instructions, follow up and referral plans. Demonstrated understanding of instructions, follow-up care, medications, Prescriptions given X 1, 20:00 Patient left the ED. pf1 Signatures: Dispatcher [employer] EDSocorro Melvin, [place] GUERRERO-Liana Caputo, RN RN db Jennifer Torrez RN RN pf1 Corrections: (The following items were deleted from the chart) 10/15 06:45 03 20:03 Patient left the ED. pf1 pf1
--- NOTE | 2023-10-15 19:28 | EDPHYS ---
Physician Documentation [facility] Name: Autumn Bhatia Age: 48 yrs Sex: Female : 1975 Arrival Date: 10/15/2023 Time: 18:26 Bed 16 Private MD: ED Physician Nicholas Teran HPI: 10/14 19:25 This 48 yrs old Female presents to ER via EMS with complaints of Arm Injury. kb 19:25 Patient is a 48-year-old female who presents for left shoulder pain after a fall kb yesterday. Denies any other injuries. Reports she had slight range of motion yesterday but as time is gone on she cannot move her left shoulder.. Historical: - Allergies: 18:35 No Known Allergies; db - PMHx: 18:35 Alcohol dependence; depressive disorder; ovarian vein thrombosis; db - PSHx: 18:35 ankle SX; knee sx; db - Immunization history:: Adult Immunizations unknown. - Social history:: Smoking status: Reported history of juuling and/or vaping. ROS: 19:24 Constitutional: As per HPI kb Exam: 19:25 Constitutional: This is a well developed, well nourished patient who is awake, alert, kb and in no acute distress. Head/Face: Normocephalic, atraumatic. ENT: Moist Mucous membranes Cardiovascular: Regular rate Respiratory: Respirations even and unlabored. No increased work of breathing. Talking in full sentences Skin: Warm, dry with normal turgor. Normal color. Neuro: Awake and alert, GCS 15, oriented to person, place, time, and situation. Moves all extremities. Normal gait. 19:25 Musculoskeletal/extremity: Extremities: grossly normal except: noted in the left shoulder: decreased ROM, pain, tenderness, ROM: limited passive range of motion, limited active range of motion due to pain, Circulation is intact in all extremities. Sensation intact. Vital Signs: 18:25 BP 171 / 116; Pulse 112; Resp 20; Temp 99; Pulse Ox 100% ; Weight 65.77 kg; Height 5 db ft. 6 in. ; Pain 10/10; 19:45 BP 160 / 92; Pulse 95; Resp 16; Temp 98.8; Pulse Ox 100% on R/A; Pain 7/10; pf1 18:25 Body Mass Index 23.40 (65.77 kg, 167.64 cm) db 18:25 Pain Scale: Adult db 19:45 Pain Scale: Adult pf1 MDM: 18:33 Patient medically screened. kb 19:23 Differential diagnosis: dislocation, closed fracture, contusion. Data reviewed: vital kb signs, nurses notes. Independent interpretation of the following test(s) in the Emergency Department X-Ray: My interpretation is proximal humerus fracture, left. Historians other than the Patient: EMS: [facility]. Counseling: I had a detailed discussion with the patient and/or guardian regarding the historical points, exam findings, and any diagnostic results supporting the discharge/admit diagnosis, radiology results, the need for outpatient follow up, a orthopedic surgeon, to return to the emergency department if symptoms worsen or persist or if there are any questions or concerns that arise at home. 10/14 18:34 Order name: Shoulder Left (2 View) XRAY; Complete Time: 19:33 kb 10/14 19:11 Order name: Sling; Complete Time: 20:00 kb Administered Medications: 18:45 Drug: Ketorolac IM 30 mg IM once Route: IM; Site: right deltoid; pf1 20:00 Follow up: Response: No adverse reaction; Marked relief of symptoms; Pain is decreased pf1 20:00 Drug: [place] PO 10 mg-325 mg 1 tabs PO once Route: PO; pf1 20:00 Follow up: Response: No adverse reaction; Marked relief of symptoms; Pain is decreased; pf1 RASS: Alert and Calm (0) 20:01 Follow up: Response: No adverse reaction; Marked relief of symptoms pf1 Disposition Summary: 10/15/23 19:27 Discharge Ordered Notes: Location: Home kb Condition: Stable kb Diagnosis - Left proximal humerus fracture kb Followup: kb - With: Emergency Department - When: As needed - Reason: Worsening of condition Followup: kb - With: Private Physician - When: 2 - 3 days - Reason: Recheck today's complaints, Continuance of care, Re-evaluation by your physician Discharge Instructions: - Discharge Summary Sheet kb - Humerus Fracture Treated With Immobilization, Eoot-gw-Heuf kb Forms: - Medication Reconciliation Form kb - Thank You Letter kb - Antibiotic Education kb - Prescription Opioid Use kb - Patient Portal Instructions kb - Leadership Thank You Letter kb Prescriptions: - Diclofenac Sodium 75 mg Oral tablet, delayed release (enteric coated) - take 1 tablet ORAL route 2 times per day As needed; 30 tablet; Refills: 0, kb Product Selection Permitted Addendum: 10/20/2023 06:58 Co-signature as Attending Physician, Nicholas DANGELO I reviewed the patient's care r n provided by the Advanced Practice Provider and agree with the diagnosis and treatment plan. Signatures: Dispatcher [employer] Socorro Spencer, GRINDER SET UP OPERATOR CENTERLESS-C GRINDER SET UP OPERATOR CENTERLESS-Ckb Nicholas Teran MD MD rn Benton, Danielle RN RN Jennifer Olson RN RN pf1
[2023-10-15 20:21] VITALS: BP 160/92; TEMP 98.8; O2SAT 100
== END ==
LOC: ER 18:26
DX: S42.202A Unspecified fracture of upper end of left humerus, initial encounter for closed fracture (principal); W18.30XA Fall on same level, unspecified, initial encounter; F10.20 Alcohol dependence, uncomplicated
CPT/HCPCS: 96372; 99284